=== PATIENT | female | born 1985 | race Caucasian/White ===

== ENCOUNTER 2024-04-08 15:42 | Outpatient (CLI) | payer OTHER, SELFPAY ==
[2024-04-08] VITALS (14 sets, daily range): BP systolic 131–167; BP diastolic 59–87; PULSE 77–98; BMI 35.8
[2024-04-08 16:26] LABS: Basophils Absolute Auto 0.1 K/mm3 (0.0-0.1); Basophils Percent Auto 0.4 % (0.2-1.2); Eosinophils Absolute Auto 0.1 K/mm3 (0-0.3); Eosinophils Percent Auto 0.6 % (0-4.4); Hematocrit 39.5 % (37.0-47.0); Hemoglobin 13.8 g/dL (12.0-15.0); Immature Granulocyte Absolute 0.09 K/mm3 (0.00-0.031); Immature Granulocyte Percent A 0.7 % (0-0.5); Lymphocytes Absolute Auto 2.29 K/mm3 (0.9-3.2); Lymphocytes Percent Auto 18.2 % (18.3-44.2); Mean Corpuscular HGB Conc 34.9 g/dl (32-36); Mean Corpuscular Hemoglobin 31.3 pg (26-34); Mean Corpuscular Volume 89.6 fl (80-100); Mean Platelet Volume 9.6 fl (7.4-10.4); Monocytes Absolute Auto 1.4 K/mm3 (0.1-0.6); Monocytes Percent Auto 11.4 % (2.6-8.5); Neutrophils Absolute Auto 8.7 K/mm3 (1.3-6.7); Neutrophils Percent Auto 68.7 % (45.5-73.1); Platelet Count Result 205 k/mm3 (150-375); Red Blood Count 4.41 M/mm3 (4.2-5.4); Red Cell Distribution Width 13.2 % (11.5-14.5); White Blood Count 12.6 K/mm3 (4.5-10.0)
[2024-04-08 16:35] LABS: Add Urine Microscopic? YES; Appearance Urine Clear (Clear); Bacteria Urine None Seen /hpf; Bilirubin Urine Negative (Negative); Blood Urine Trace (Negative); Color Urine Yellow (Yellow); Glucose Urine UA Negative (Negative); Ketones Urine Trace mg/dL (Negative); Leukocyte Esterase Ur Negative LEU/UL (Negative); Nitrate Urine Negative (Negative); Non Pathogenic Casts 0-2; Protein Urine Negative (Negative); Specific Grav Ur 1.014 (1.001-1.035); Squamous Epithelial Cell Urine Occasional /hpf (Few); WBC Urine 0-5 /hpf (0-3); pH Urine 6.5 (5.0-9.0)
[2024-04-08 16:41] LABS: Alanine Aminotransferase 46 U/L (6-35); Albumin Level 3.7 g/dL (3.5-5.1); Alkaline Phosphatase 74 U/L (38-126); Anion Gap 10 mmol/L (4-12); Aspartate Amino Transferase 26 U/L (14-36); Bilirubin,Total 0.2 mg/dL (0.2-1.3); Blood Urea Nitrogen 5 mg/dL (7-17); Calcium 8.9 mg/dL (8.4-10.2); Carbon Dioxide 21 mmol/L (22-30); Chloride 104 mmol/L (98-107); Estimated Glomerular Filt Rate > 60; Glucose 94 mg/dL (65-110); Potassium 3.6 mmol/L (3.4-5.0); Sodium 135 mmol/L (137-145); Uric Acid 3.8 mg/dL (2.5-7.5)
[2024-04-08 16:41] LABS: Creatinine Urine 112.5 mg/dL; Total Protein Urine Random 6 mg/dL; Ur Ttl Prot Creatinine Ratio 0.05 mg/mg (0-0.20)
--- NOTE | 2024-04-08 17:05 | PC.NURSE ---
Called Dr. Swann with pt status. Informed of BPs, and lab results. Orders received.
[2024-04-08] MEDS: LABETALOL HCL 100 MG TABLET 200 MG PO (17:23)
--- NOTE | 2024-04-08 18:20 | PC.NURSE ---
Dr. Swann updated on BPs. Continue to monitor BP for 1hr. If BP remains WNL, may D/C home with Labetalol 200mg. Follow up in office this week.
== END 2024-04-08 19:47 | disposition home or self-care (01) ==
LOC: ANHOBOP 15:51 → ANHOBPP 15:53
PROVIDERS: Visit Provider Obstetrics & Gynecology
DX: O13.9 Gestational [pregnancy-induced] hypertension without significant proteinuria, unspecified trimester (principal); Z3A.00 Weeks of gestation of pregnancy not specified
CPT/HCPCS: 36415; 80053; 81001; 82570; 84156; 84550; 85025; 99199; A9270

== ENCOUNTER 2024-07-02 11:42 | Outpatient (RCR) | payer OTHER, SELFPAY ==
[2024-07-02 13:07] LABS: Hematocrit 33.3 % (37.0-47.0); Hemoglobin 11.3 g/dL (12.0-15.0)
[2024-07-02 13:17] LABS: Glucose 1 Hour PP 50gm Dose 130 mg/dL
[2024-07-02 13:56] LABS: HIV 1/2 Ab P24 Ag Result Negative (Negative)
[2024-07-03 04:36] LABS: Rapid Plasma Reagin Non-Reactive (NonReactive)
[2024-07-04] MEDS: RHO(D) IMMUNE GLOBULIN 300 MCG/2 ML SYRINGE IM (17:21)
== END 2024-09-30 23:59 | disposition home or self-care (01) ==
LOC: ANHLAB 11:42
PROVIDERS: Visit Provider Obstetrics & Gynecology
DX: Z11.4 Encounter for screening for human immunodeficiency virus [HIV] (principal); Z11.3 Encounter for screening for infections with a predominantly sexual mode of transmission; O36.0130 Maternal care for anti-D [Rh] antibodies, third trimester, not applicable or unspecified; Z3A.00 Weeks of gestation of pregnancy not specified
CPT/HCPCS: 36415; 82947; 85014; 85018; 85461; 86592; 86703; 86850; 86900; 86901; 90384; 96372; G0432; J2790

== ENCOUNTER 2024-09-06 17:02 | Outpatient (CLI) | payer OTHER, SELFPAY ==
[2024-09-06 17:39] LABS: Hematocrit 33.6 % (37.0-47.0); Hemoglobin 10.9 g/dL (12.0-15.0); Mean Corpuscular HGB Conc 32.4 g/dl (32-36); Mean Corpuscular Hemoglobin 29.6 pg (26-34); Mean Corpuscular Volume 91.3 fl (80-100); Mean Platelet Volume 10.6 fl (7.4-10.4); Platelet Count Result 192 k/mm3 (150-375); Red Blood Count 3.68 M/mm3 (4.2-5.4); Red Cell Distribution Width 15.7 % (11.5-14.5); White Blood Count 10.6 K/mm3 (4.5-10.0)
[2024-09-06 18:31] LABS: HIV 1/2 Ab P24 Ag Result Negative (Negative)
[2024-09-06 22:33] LABS: Rapid Plasma Reagin Non-Reactive (NonReactive)
--- OUTSIDE RECORDS SUMMARY | 2024-09-08 20:09 | XMS_ITS | Data Portability ---
Author Organization [facility] [place] Address [address] [place] [address] [place] [address] Assessment Encounter Date Assessment Date Assessment LastModified by Organization Details LastModified Time 09/01/2024 09/01/2024 Patient is ___weeks . Discussed plan. Not available 09/01/2024 16:06:51 Plan of Treatment Reminders Order Date Submit Date Provider Last Modified By Organization Details Last Modified Time Details Appointments SURG POST OP 2024 02:15P Butch SWANN MD Not available Not available Not available Lab None recorded. Referral None recorded. Procedures None recorded. Surgeries None recorded. Imaging US, obstetric , biophysic al profile + non-stres s test 2024 025 [address], [address], [place], [address], 08/25/2024 21:13:44 non-stres s test 2024 025 [email or web address] [place], [address], [place], [address], 09/02/2024 09:09:04 US, obstetric , biophysic al profile + non-stres s test 2024 025 [email or web address] [place] [facility] [address], [place], [address], 09/01/2024 20:17:34 Medication Orders None recorded. Patient TargetsNo targets recorded. Patient InstructionsNo instructions recorded. Reason for Referral None Reported. Results Created Date Observation Date Name Description Value Unit Range Abnormal Flag Note LastModifiedBy Organization Detail LastModifiedTime 08/25/1908/25/2024 CULTU RE: GROUP B STREP SCREE N, REFLE X SUSCE PTIBI LITY result report SEE RESULT S BELOW Test: Cultu re: Group B Strep , Refle x Susce ptibi lity ([facility]/ [facility] ) Speci men Sourc e: Vagin a/Rec elizabeth Speci men Type: Vagin al/Re ctal Speci men Date: 025 1626 Resul t Date: 2024 1403 Resul t Statu s: Final resul t Abnor mal: No Resul ting Lab: [facility] [address] [facility] [address] Tel: CULTU RE ----- ----- ----- --- No Group B strep isola israel at 2 days (servando ctive broth enhan cemen t) Not Available [facility] (Lab) [address] [facility], [place], [address], 08/28/2024 15:06:43 07/27/20 24 07/27/2024 non-s tress test No observ ation record ed. [email or web address], [place], [address], 07/27/2024 17:48:00 07/27/20 24 07/27/2024 US, obste tric, bioph ysica l profi le + non-s tress test No observ ation record ed. [facility] [address], [place], [address], 07/27/2024 18:00:12 07/27/20 24 07/27/2024 US, obste tric, bioph ysica l profi le + non-s tress test No observ ation record ed. [email or web address] [address], [place], [address], 07/27/2024 21:54:43 08/03/20 24 08/03/2024 US, obste tric, bioph ysica l profi le + non-s tress test No observ ation record ed. [email or web address] [place] [address], [place], [address], 08/03/2024 17:58:44 08/03/20 24 08/03/2024 US, obste tric, bioph ysica l profi le + non-s tress test No observ ation record ed. [email or web address] [address] [facility], [place], [address], 08/03/2024 21:47:37 08/03/20 24 08/03/2024 non-s tress test No observ ation record ed. [email or web address] [place] [address], [place], [address], 08/03/2024 18:53:24 08/03/20 24 08/03/2024 non-s tress test No observ ation record ed. [email or web address] [place] [address], [place], [address], 08/03/2024 18:56:12 08/11/20 24 08/11/2024 non-s tress test No observ ation record ed. [email or web address] [place] [address], [place], [address], 08/11/2024 14:39:28 08/11/20 24 08/11/2024 US, obste tric, follo w-up No observ ation record ed. [email or web address] [place] [address], [place], [address], 08/11/2024 15:23:29 08/11/20 24 08/11/2024 US, obste tric, bioph ysica l profi le + non-s tress test No observ ation record ed. [email or web address] [place] [address], [place], [address], 08/11/2024 15:23:42 08/11/20 24 08/11/2024 US, obste tric, follo w-up No observ ation record ed. [email or web address] [address], [place], [address], 08/11/2024 20:37:13 08/18/19 25 08/18/2024 US, obste tric, bioph ysica l profi le + non-s tress test No observ ation record ed. [email or web address] [place] [address], [place], [address], 08/18/2024 18:23:18 08/18/19 25 08/18/2024 US, obste tric, bioph ysica l profi le + non-s tress test No observ ation record ed. [email or web address] [address], [place], [address], 08/18/2024 21:21:32 08/18/19 25 08/18/2024 non-s tress test No observ ation record ed. [place] [address], [place], [address], 08/18/2024 17:49:04 08/25/19 25 08/25/2024 US, obste tric, bioph ysica l profi le + non-s tress test No observ ation record ed. [email or web address] [place] [address], [place], [address], 08/25/2024 18:47:43 08/25/19 25 08/25/2024 US, obste tric, bioph ysica l profi le + non-s tress test No observ ation record ed. [email or web address] [address], [place], [address], 08/25/2024 21:21:25 08/25/19 25 08/25/2024 non-s tress test No observ ation record ed. [place] [address], [place], [address], 08/25/2024 18:47:13 09/01/19 25 09/01/2024 US, obste tric, bioph ysica l profi le + non-s tress test No observ ation record ed. [email or web address] [place] [address], [place], [address], 09/01/2024 18:32:00 09/01/19 25 09/01/2024 US, obste tric, follo w-up No observ ation record ed. [address], [place], [address], 09/01/2024 22:10:28 09/01/19 25 09/01/2024 non-s tress test No observ ation record ed. [place] [address], [place], [address], 09/01/2024 17:00:44 Result Notes None recorded. Problems Name Problem SNOMED Code Status Onset Date Resolution Date Notes Provider Name and Address Organization Details Recorded Time 06431115 Active 2023 Tracie resendiz, [facility] 4 15:35:01 Shoulder girdle dystocia 58838065 Active 9 lb 2 oz infant, possible injury, to do primary Gabino Swann MD [address], [place], [address], [facility] 4 18:21:13 RhD negative 484019460 Active rhogam @28wks - 07/04/24 received [facility], [facility] 4 11:16:57 RhD negative 831350874 Active rhogam @28wks - 07/04/24 received Chay resendiz, [facility] 4 11:16:57 Chronic hypertens ion in obstetric context 3863364 Active 32wk testing - baseline PIH labs & PCR done at [facility] 04/08/24. ALT mildly elevated (46), otherwise WNL. Labetalol 100 bid antental testing wkly 32wks 38wk delivery [facility], [facility] 4 15:48:13 Advanced maternal age 032119711 Active 36 WK TESTING Sylviabry Mac [facility] 4 10:11:15 Advanced maternal age 906373057 Active 36 WK TESTING Sylviabry Mac [facility] 4 10:11:15 Problem Notes None recorded. Procedures Surgical History Date Name Laterality Status Provider Name and Address Organization Details Recorded Time 5 SECTION (SURG) completed Tracie Brizuela [facility] 09/07/2024 10:23:05 2 Date of Last Pap Smear completed [facility] 02/22/2024 15:47:00 9 Breast Implants completed [facility] 02/22/2024 15:54:27 0 LEEP completed [facility] 02/22/2024 15:46:30 7 termination of completed [facility] 02/22/2024 15:54:42 Imaging Results Imaging Date Name Status LastModified by [facility]iz [email or web address] Details LastModified Time 07/27/2024 non-stress test completed [email or web address] [place] [address], [place], [address], 07/27/2024 17:48:00 07/27/2024 US, obstetric, biophysical profile + non-stress test completed [email or web address] [place] [address], [place], [address], 07/27/2024 18:00:12 07/27/2024 US, obstetric, biophysical profile + non-stress test completed [email or web address] [address], [place], [address], 07/27/2024 21:54:43 08/03/2024 US, obstetric, biophysical profile + non-stress test completed [email or web address] [place] [address], [place], [address], 08/03/2024 17:58:44 08/03/2024 US, obstetric, biophysical profile + non-stress test completed [email or web address] [address], [place], [address], 08/03/2024 21:47:37 08/03/2024 non-stress test completed [address], [place], [address], 08/03/2024 18:53:24 08/03/2024 non-stress test completed [email or web address], [place], [address], 08/03/2024 18:56:12 08/11/2024 non-stress test completed [email or web address] [address], [place], [address], 08/11/2024 14:39:28 08/11/2024 US, obstetric, follow-up completed [email or web address], [place], [address], 08/11/2024 15:23:29 08/11/2024 US, obstetric, biophysical profile + non-stress test completed [address], [place], [address], 08/11/2024 15:23:42 08/11/2024 US, obstetric, follow-up completed [email or web address] [address], [place], [address], 08/11/2024 20:37:13 08/18/2024 US, obstetric, biophysical profile + non-stress test completed [address], [place], [address], 08/18/2024 18:23:18 08/18/2024 US, obstetric, biophysical profile + non-stress test completed [email or web address] [address], [place], [address], 08/18/2024 21:21:32 08/18/2024 non-stress test active [address], [place], [address], 08/18/2024 17:49:04 08/25/2024 US, obstetric, biophysical profile + [facility]stress test [email or web address] [address], [place], [address], 08/25/2024 18:47:43 08/25/2024 US, obstetric, biophysical profile + non-stress test completed [email or web address] [address], [place], [address], 08/25/2024 21:21:25 08/25/2024 non-stress test active [email or web address] [place] [address] [address], [place], [address], 08/25/2024 18:47:13 09/01/2024 US, obstetric, biophysical profile + non-stress test completed [facility] [address], [place], [address], 09/01/2024 18:32:00 09/01/2024 US, obstetric, follow-up completed [address], [place], [address], 09/01/2024 22:10:28 09/01/2024 non-stress test completed [address], [place], [address], 09/01/2024 17:00:44 Procedure Notes None recorded. Medical Equipment None Reported. Allergies No known drug allergies Medications Name Sig Start Date Stop Date Status Note LastModified by Organization Details LastModified Time labetalol 200 mg tablet Take 1 tablet twice a day by oral route as directed . active Not Available Not Available No t Available active Not Available Not Avai lable Not Available Vitals Date Recorded Body weight Body height Body mass index (BMI) Body weight Systolic blood pressure Diastolic blood pressure Systolic blood pressure Diastolic blood pressure Provider Name and Address Organization Details Last Updated DateTime 640612. 55421 g 154.94 cm 42.7 kg/m2 262365. 88 g 158 mm[Hg] 90 mm[Hg] 158 mm[Hg] 90 mm[Hg] Norah Chahal [facility] 18:46:11 Date Recorded Body weight Systolic blood pressure Diastolic blood pressure Provider Name and Address Organization Details Last Updated DateTime 09/01/2024 618828.429 84 g 143 mm[Hg] 85 mm[Hg] Norah Chahal [facility] 09/01/2024 16:07:51 Date Recorded Body height Provider Name an d Address Organization Details Last Updated DateTime 09/01/2024 154.94 cm Tracie Brizuela [facility] 09/01/2024 16:59:26 Social History Question Answer Notes LastModified by Organizat ion Details LastModified Time Tobacco Smoking Status Current Every Day Smoker [facility]ah [facility], [facility] 02/22/2024 15:53:16 Do You Have An Advance Directive? No Information not available 02/22/2024 What Is Your Level Of Alcohol Consumption? None Information not available 02/22/2024 Are You Blind Or Do You Have Difficulty Seeing? No Information not available 02/22/2024 What Is Your Level Of Caffeine Consumption? Moderate Information not available 02/22/2024 In The 14 Days Before Symptom Onset, Have You Had Close Contact With A Laboratory-confir med COVID-19 While That Case Was Ill? No Information not available 02/22/2024 In The 14 Days Before Symptom Onset, Have You Had Close Contact With A Person Who Is Under Investigation For COVID-19 While That Person Was Ill? No Information not available 02/22/2024 Have You Been To An Area Known To Be High Risk For COVID-19? No Information not available 02/22/2024 Are You Deaf Or Do You Have Serious Difficulty Hearing? No Information not available 02/22/2024 What Type Of Diet Are You Following? REGULAR Information not available 02/22/2024 What Is The Highest Grade Or Level Of School You Have Completed Or The Highest Degree You Have Received? 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 No Information not available 02/22/2024 Do You Use Protection During Sex? No Information not available 02/22/2024 Do You Use Your Seat Belt Or Car Seat Routinely? Yes Information not available 02/22/2024 Are You Sexually Active? Yes Information not available 02/22/2024 Do You Have Smoke And Carbon Monoxide Detectors In Your Home? Yes Information not available 02/22/2024 Do You Feel Stressed (tense, Restless, Nervous, Or Anxious, Or Unable To Sleep At Night)? [id number] Information not available 02/22/2024 Do You Use Any Illicit Or Recreational Drugs? No Information not available 02/22/2024 Do You Use Sunscreen Routinely? Yes Information not available 02/22/2024 Have You Used IV Drugs? No Information not available 02/22/2024 Sex: Unknown Functional Status Question Answer Note LastModified by Organizat ion Details LastModified Time Do you have difficulty walking or climbing stairs? No Information not available 02/22/2024 Are you able to walk? YESWOREST Information not available 02/22/2024 Are you able to care for yourself? Yes Information not available 02/22/2024 Do you have difficulty dressing or bathing? No Information not available 02/22/2024 What is your exercise level? Occasional Information not available 02/22/2024 Mental Status None recorded. Family History Relationship Description Onset Age of this Age Resolved Age Notes LastModified by Organization Details LastModified Time Father Hypertensive disorder Not available 2023 15:52:40 Paternal Grandmother Hypertensive disorder Not available 2023 15:52:40 Paternal Aunt Carcinoma of cervix Not available 2023 15:53:07 Medical History No medical history recorded. Gynecological History Statement/Question Response Abnormal Pap Y Flow Moderate Date of LMP 12/16/2023 On BCP's at Conception? N Was last menstrual period normal Y STIs/STDs N HPV Vaccine Y Duration of Flow (days) 7 Current Control Method Age at First Child 19 Are cycles usually normal Y Frequency of Cycle (Q days) 30 Sexually Active? Y Menses Monthly Y Age of first menstrual cycle 18 Date of Last Pap Smear 08/17/2021 Sexual Problems? N LMP Definite Obstetrics History GPAL:G 5 P 1 0 2 1 Type Value Full Term 1 Induced 1 Spontaneous 1 Living 1 Total 5 Past Encounters Encounter ID Performer Location Encounter Start Date Encounter Closed Date Diagnosis/Indication Diagnosis SNOMED-CT Code Diagnosis ICD10 Code Diagnosis Note [id number] Brittany Miller [place] [address] [address] 02/22/2024 14:53:10 02/22/2024 15:25:48 [id number] Gabino Swann MD [place] [address],[place] [address] 02/22/2024 14:53:24 02/22/2024 16:45:45 Amenorrhea 88804384 N91.2 this patient is a 38-year-ol d female who presents for amenorrhea . She is a positive test. Ultrasound revealed a 1st trimester gestation. Patient has no complaints . We talked about early care. Talked about genetic screening. We talked about her ultrasound results. We talked about the 12 week ultrasound that has genetic screening components . She was given recommenda tions on exercise, diet, over-the-c ounter medication s. We reviewed her obstetric history. We reviewed her medical history. We reviewed her social history. She will begin routine care at her next visit. shoulder dystocia with injury to the shoulder. , hypoxia , to do , history 9 lb 2 oz baby [id number] Gabino Swann MD [place] [address],[place] [address] 03/11/2024 14:55:10 03/12/2024 10:00:08 Routine care 236980175 Z34.90 screening 2437 76925 Z36.82 Z3A.12 [id number] [facility] [address],[place] [address] 03/11/2024 14:55:53 03/11/2024 16:36:37 screening 200538561 Z36.82 Z3A.12 [id number] Gabino Swann MD [place] [address],[place] [address] 04/08/2024 15:49:05 04/08/2024 16:50:28 Chronic hypertension in obstetric context 3973162 O16.9 [id number] Gabino Swann MD [place] [address],[place] [address] 04/15/2024 15:12:16 04/15/2024 16:13:47 Routine care 018044061 Z34.90 [id number] [facility] [address],[place] [address] 05/05/2024 16:33:53 05/05/2024 17:52:27 screening for malformation 802748403 Z36.3 Z3A.20 [id number] Gabino Swann MD [place] [address],[place] [address] 05/05/2024 16:35:09 05/06/2024 09:59:52 Routine care 097092426 Z34.90 [id number] [facility] [address],[place] [address] 06/06/2024 16:53:05 06/06/2024 17:35:37 screening 078197267 Z36.2 Z3A.24 [id number] Gabino Swann MD [place] [address],[place] [address] 06/06/2024 16:53:36 06/06/2024 17:57:30 Routine care 521887694 Z34.90 [id number] Gabino Swann MD [place] [address],[place] [address] 07/04/2024 17:08:50 07/05/2024 02:44:56 Chronic hypertension complicating AND/OR reason for care during 16896660 O16.9 Routine an tenatal care 112661167 Z34.90 [id number] [facility] [address],[place] [address] 07/18/2024 16:54:55 07/18/2024 22:53:25 Chronic hypertension complicating AND/OR reason for care during 76112873 O10.013 O09.523 Z3A.30 [id number] Gabino Swann MD [place] [address],[place] [address] 07/18/2024 16:55:14 07/18/2024 22:54:38 Routine care 127001769 Z34.[id number] [facility] [address],[place] [address] 07/27/2024 17:01:24 07/27/2024 17:38:19 69753174 Z33.1 Chronic hy pertension complicating AND/OR reason for care during 72039220 O10.013 O09.523 Z3A.32 [id number] Kristina Lucy [place] [address],[place] [address] 07/27/2024 17:01:48 07/27/2024 17:59:26 Chronic hypertension complicating AND/OR reason for care during 37166508 O10.013 O09.523 Z3A.32 [id number] Gabino Swann MD [place] [address],[place] [address] 07/27/2024 17:02:18 07/28/2024 09:50:02 Routine care 071780577 Z34.90 [id number] Domenica Malik [place] [address],[place] [address] 08/03/2024 16:59:55 08/04/2024 10:57:32 Chronic hypertension complicating AND/OR reason for care during 90255487 O16.9 [id number] Brittany Miller [place] [address],[place] [address] 08/03/2024 17:00:15 08/04/2024 06:35:25 Chronic hypertension in obstetric context 0483758 O10.013 O09.523 Z3A.33 [id number] Gabino Swann MD [place] [address],[place] [address] 08/03/2024 17:00:35 08/04/2024 06:38:20 Routine care 837054737 Z34.90 [id number] Tracie Brizuela [place] [address],[place] [address] 08/11/2024 14:04:45 08/11/2024 15:08:56 Chronic hypertension complicating AND/OR reason for care during 06022231 O16.9 [id number] [facility] [address],[place] [address] 08/11/2024 14:05:09 08/11/2024 15:17:40 Chronic hypertension complicating AND/OR reason for care during 53528765 O10.013 O09.523 Z3A.34 [id number] Gabino Swann MD [place] [address],[place] [address] 08/11/2024 14:05:21 08/11/2024 15:56:28 Obstructed labor due to shoulder dystocia 140133360 O66.0 [id number] Kristina [facility] [address],[place] [address] 08/18/2024 13:35:08 08/18/2024 14:11:40 Advanced maternal age 017339545 O09.523 O16.3 O99.210 Z3A.35 [id number] Norah [facility] [address],[place] [address] 08/18/2024 13:35:24 08/18/2024 22:45:22 Chronic hypertension complicating AND/OR reason for care during 26249110 O16.9 [id number] Gabino Swann MD [place] [address],[place] [address] 08/18/2024 13:35:36 08/18/2024 15:32:19 Routine care 217401692 Z34.90 Obstructed labor due to shoulder dystocia 810899754 O66.0 [id number] [facility] [address],[place] [address] 08/25/2024 14:21:16 08/25/2024 15:14:06 Chronic hypertension complicating AND/OR reason for care during 54917295 O10.013 O09.523 Z3A.36 [id number] Norah [facility] [address],[place] [address] 08/25/2024 14:21:31 08/26/2024 14:25:21 Chronic hypertension complicating AND/OR reason for care during 39063758 O16.9 [id number] Gabino Swann MD [place] [address],[place] [address] 08/25/2024 14:22:03 08/25/2024 16:36:59 Routine care 809261466 Z34.90 [id number] Brittany Miller [place] [address],[place] [address] 09/01/2024 14:40:13 09/01/2024 15:12:45 Chronic hypertension complicating AND/OR reason for care during 36201504 O10.013 O09.523 Z3A.37 [id number] Tracie Gelacio [place] [address],[place] [address] 09/01/2024 14:40:30 09/01/2024 17:14:57 Chronic hypertension complicating AND/OR reason for care during 45476613 O10.013 O09.523 Z3A.37 [id number] Gabino Swann MD [place] [address],[place] [address] 09/01/2024 14:40:53 09/01/2024 17:05:52 Routine care 553910744 Z34.90 [id number] Gabino Swann MD [place] [address],[place] [address] 09/07/2024 10:27:45 09/07/2024 16:15:05 Health Concerns Section Related Observation LastModified by Organization Detai ls LastModified Time None Recorded Concern Status LastModified by Organization Details LastModified Time None Recorded Advance Directives Directive N: Payers Encounter Date Sequence Insurance Name Policy Number Policy Painting Covered Member ID Painting Member ID Guarantor Name 08/25/2024 1 [employer] [id number] Jessika Neri [id number] Jessika Neri 09/01/2024 1 [employer] [id number] Jessika Neri [id number] Jessika Neri 09/01/2024 1 [employer] [id number] Jessika Neri [id number] Jessika Neri 09/01/2024 1 [employer] [id number] Jessika Daron [id number] Jessika Daron 09/07/2024 1 [employer] [id number] Jessika Daron [id number] Jessika Neri OBGyn Episode Ob Episode Information Episode Created Date Number of Fetuses Patient Bloodtype Patient rh Status Prepregnancy Weight lbs Domestic Partner Domestic Partner Phone Father Name Bobbin Loose End Finder Status 02/22/20 1 CLOSED Fetus Data First Name Last Name Admitted to NICU Weight (g) Sex Living Outcome Pediatric Complications Fetus ID Race Codes Race Delivery Type , Induced [id number] Rico Calculation Initial Rico Date Initial Exam Date Initial Exam Provider Initial Ultrasound Date Last Menstrual Period Date Ultra Sound Weeks Gestation 0 Eighteen To Twenty Week Rico Update Ultra Sound Date Fundal Height At Umbil Quickening Date Ultra Sound Latest Weeks Gestation Final Rico Confirmed By Final Rico Confirmed Date Final Rico Date Ultra Sound Latest Days Gestation 0 0 Menstrual History Last Menstrual Date Menses Monthly On Bcp Conception Prior Menses Frequency Hcg Plus Date Menarche Onset Age Delivery Information Delivery Date Delivery Type Labor Anesthesia Weeks Gestation Incision Type Labor Labor Length Hrs Delivered By Post Complications Tubal Sterilization Discharge Date Comments 7 Discharge Information Feeding Method Contraceptive Method Maternal HG B and HCT Levels Ob Episode Information Episode Created Date Number of Fetuses Patient Bloodtype Patient rh Status Prepregnancy Weight lbs Domestic Partner Domestic Partner Phone Father Name Bobbin Loose End Finder Status 03/11/20 [address] OPEN Fetus Data First Name Last Name Admitted to NICU Weight (g) Sex Living Outcome Pediatric Complications Fetus ID Race Codes Race Delivery Type [id number] Problems Problem Notes Problem Name Start Date End Date Resolution Snomed Code Not e Advanced maternal age [id number] WK TESTING Chronic hypertension in obstetric context [id number] 32wk anten atal testing - baseline PIH labs & PCR done at [facility] 04/08/24. ALT mildly elevated (46), otherwise WNL. Labetalol 100 bid antental testing wkly 32wks 38wk delivery RhD negative [id number] rhogam @28wks - 07/04/24 received Shoulder girdle dystocia [id number] lb 2 oz infan t, possible injury, to do primary Rico Calculation Initial Rico Date Initial Exam Date Initial Exam Provider Initial Ultrasound Date Last Menstrual Period Date Ultra Sound Weeks Gestation 09/21/2024 03/11/2024 02/22/2024 12/16/2023 9 Eighteen To Twenty Week Rico Update Ultra Sound Date Fundal Height At Umbil Quickening Date Ultra Sound Latest Weeks Gestation Final Rico Confirmed By Final Rico Confirmed Date Final Rico Date Ultra Sound Latest Days Gestation 0 [email or web address] 07/04/2024 09/21/19 25 0 Pre- Flowsheet Flowsheet Date 03/11/2024 Lozano Score Blood Edema Fundus Height Fundus Units Glucose Ketones Leukocytes Nitrite Labor Signs Protein Cervic Dilation Cervic Effacement Cervic Station neg none none trace Type Weight in lbs Pre/Post Dialysis Refused Weight 180.176295118652 BP Diastolic BP Location Tested BP Systolic BP Type 92 L arm 153 sitting Fetus Heart Rate Present Fetus Movement Comments this patient is a 14 -year-o ld multiparous female at 12 weeks' gestation who presents for initial care. She has a history of term vaginal births. Her medical, surgical, obstetric history is unremarkable. She is vaccinated. She was given precautions recommendations for . We talked about vaccines in . Talked about care in detail. She is having genetic testing. She had a normal 12 week ultrasound. To begin routine care. shoulder dystocia with possible injury Flowsheet Date 03/11/2024 Lozano Score Blood Edema Fundus Height Fundus Units Glucose Ketones Leukocytes Nitrite Labor Signs Protein Cervic Dilation Cervic Effacement Cervic Station Type Weight in lbs Pre/Post Dialysis Refused BP Diastolic BP Location Tested BP Systolic BP Type Fetus Heart Rate Present Fetus Movement Comments Flowsheet Date 04/08/2024 Lozano Score Blood Edema Fundus Height Fundus Units Glucose Ketones Leukocytes Nitrite Labor Signs Protein Cervic Dilation Cervic Effacement Cervic Station 16 cm Type Weight in lbs Pre/Post Dialysis Refused 189.080033519779 BP Diastolic BP Location Tested BP Systolic BP Type 127 L arm 186 sitting 120 R arm 188 sitting 118 R arm 180 sitting Fetus Heart Rate Present A 150 Fetus Movement A No Comments patient has very high blood pressures. She has asked to go to labor and delivery for control of her blood pressure issue. She understands that there is risk of stroke, heart attack, loss of , spoke to labor and delivery, they are expecting her. Flowsheet Date 04/15/2024 Lozano Score Blood Edema Fundus Height Fundus Units Glucose Ketones Leukocytes Nitrite Labor Signs Protein Cervic Dilation Cervic Effacement Cervic Station Type Weight in lbs Pre/Post Dialysis Refused 189.322913405325 BP Diastolic BP Location Tested BP Systolic BP Type 78 L arm 129 sitting Fetus Heart Rate Present A 151 Fetus Movement A Yes Comments no complaints, no problems, routine care, no contractions, no vaginal bleeding, no loss of fluid, no cramping now under control on labetalol. Continue routine care. Flowsheet Date 05/05/2024 Lozano Score Blood Edema Fundus Height Fundus Units Glucose Ketones Leukocytes Nitrite Labor Signs Protein Cervic Dilation Cervic Effacement Cervic Station Type Weight in lbs Pre/Post Dialysis Refused BP Diastolic BP Location Tested BP Systolic BP Type Fetus Heart Rate Present Fetus Movement Comments Flowsheet Date 05/05/2024 Lozano Score Blood Edema Fundus Height Fundus Units Glucose Ketones Leukocytes Nitrite Labor Signs Protein Cervic Dilation Cervic Effacement Cervic Station Type Weight in lbs Pre/Post Dialysis Refused 198.810292744949 BP Diastolic BP Location Tested BP Systolic BP Type 86 L arm 151 sitting 80 R arm 148 sitting Fetus Heart Rate Present Fetus Movement A Yes Comments Patient declined preeclampsi a labs today. To drawn in 2 weeks. Patient asked to return in 2 weeks. No headaches, blurred vision, epigastric pain. On labetalol - 200 b.i.d.. Improved blood pressures. Incomplete anatomy u/s Flowsheet Date 06/06/2024 Lozano Score Blood Edema Fundus Height Fundus Units Glucose Ketones Leukocytes Nitrite Labor Signs Protein Cervic Dilation Cervic Effacement Cervic Station Type Weight in lbs Pre/Post Dialysis Refused BP Diastolic BP Location Tested BP Systolic BP Type Fetus Heart Rate Present Fetus Movement Comments Flowsheet Date 06/06/2024 Lozano Score Blood Edema Fundus Height Fundus Units Glucose Ketones Leukocytes Nitrite Labor Signs Protein Cervic Dilation Cervic Effacement Cervic Station Type Weight in lbs Pre/Post Dialysis Refused 202.980734951742 BP Diastolic BP Location Tested BP Systolic BP Type 92 R arm 148 sitting Fetus Heart Rate Present A 144 Fetus Movement A Yes Comments no complaints, no problems, routine care, no contractions, no vaginal bleeding, no loss of fluid, no cramping Flowsheet Date 07/04/2024 Lozano Score Blood Edema Fundus Height Fundus Units Glucose Ketones Leukocytes Nitrite Labor Signs Protein Cervic Dilation Cervic Effacement Cervic Station Type Weight in lbs Pre/Post Dialysis Refused 214.393056217684 BP Diastolic BP Location Tested BP Systolic BP Type 82 L arm 150 sitting 88 L arm 142 sitting Fetus Heart Rate Present A 144 Fetus Movement A Yes Comments no complaints, no problems, routine care, no contractions, no vaginal bleeding, no loss of fluid, no cramping Flowsheet Date 07/18/2024 Lozano Score Blood Edema Fundus Height Fundus Units Glucose Ketones Leukocytes Nitrite Labor Signs Protein Cervic Dilation Cervic Effacement Cervic Station Type Weight in lbs Pre/Post Dialysis Refused BP Diastolic BP Location Tested BP Systolic BP Type Fetus Heart Rate Present Fetus Movement Comments Flowsheet Date 07/18/2024 Lozano Score Blood Edema Fundus Height Fundus Units Glucose Ketones Leukocytes Nitrite Labor Signs Protein Cervic Dilation Cervic Effacement Cervic Station Type Weight in lbs Pre/Post Dialysis Refused 221.117493906735 BP Diastolic BP Location Tested BP Systolic BP Type 84 L arm 132 sitting Fetus Heart Rate Present A 140 Fetus Movement A Yes Comments no complaints, no problems, routine care, no contractions, no vaginal bleeding, no loss of fluid, no cramping Flowsheet Date 07/27/2024 Lozano Score Blood Edema Fundus Height Fundus Units Glucose Ketones Leukocytes Nitrite Labor Signs Protein Cervic Dilation Cervic Effacement Cervic Station Type Weight in lbs Pre/Post Dialysis Refused BP Diastolic BP Location Tested BP Systolic BP Type Fetus Heart Rate Present Fetus Movement Comments Flowsheet Date 07/27/2024 Lozano Score Blood Edema Fundus Height Fundus Units Glucose Ketones Leukocytes Nitrite Labor Signs Protein Cervic Dilation Cervic Effacement Cervic Station Type Weight in lbs Pre/Post Dialysis Refused BP Diastolic BP Location Tested BP Systolic BP Type Fetus Heart Rate Present Fetus Movement Comments Flowsheet Date 07/27/2024 Lozano Score Blood Edema Fundus Height Fundus Units Glucose Ketones Leukocytes Nitrite Labor Signs Protein Cervic Dilation Cervic Effacement Cervic Station 145 cm Type Weight in lbs Pre/Post Dialysis Refused With clothes 221.573319842716 BP Diastolic BP Location Tested BP Systolic BP Type 90 L arm 161 sitting 70 L arm 130 supine Fetus Heart Rate Present Fetus Movement Comments no complaints, no problems, routine care, no contractions, no vaginal bleeding, no loss of fluid, no cramping Reassuring testing Flowsheet Date 08/03/2024 Lozano Score Blood Edema Fundus Height Fundus Units Glucose Ketones Leukocytes Nitrite Labor Signs Protein Cervic Dilation Cervic Effacement Cervic Station Type Weight in lbs Pre/Post Dialysis Refused Weight 222.6569573653 BP Diastolic BP Location Tested BP Systolic BP Type 80 137 Fetus Heart Rate Present Fetus Movement Comments Flowsheet Date 08/03/2024 Lozano Score Blood Edema Fundus Height Fundus Units Glucose Ketones Leukocytes Nitrite Labor Signs Protein Cervic Dilation Cervic Effacement Cervic Station Type Weight in lbs Pre/Post Dialysis Refused BP Diastolic BP Location Tested BP Systolic BP Type Fetus Heart Rate Present Fetus Movement Comments Flowsheet Date 08/03/2024 Lozano Score Blood Edema Fundus Height Fundus Units Glucose Ketones Leukocytes Nitrite Labor Signs Protein Cervic Dilation Cervic Effacement Cervic Station Type Weight in lbs Pre/Post Dialysis Refused 222.93341191312 BP Diastolic BP Location Tested BP Systolic BP Type 80 L arm 137 sitting Fetus Heart Rate Present A 145 Fetus Movement A Yes Comments Patient is becoming very unc omfortable with upward pressure from the uterus. No contractions, no headaches, no blurry vision, no epigastric pain. Flowsheet Date 08/11/2024 Lozano Score Blood Edema Fundus Height Fundus Units Glucose Ketones Leukocytes Nitrite Labor Signs Protein Cervic Dilation Cervic Effacement Cervic Station Type Weight in lbs Pre/Post Dialysis Refused BP Diastolic BP Location Tested BP Systolic BP Type Fetus Heart Rate Present Fetus Movement Comments Flowsheet Date 08/11/2024 Lozano Score Blood Edema Fundus Height Fundus Units Glucose Ketones Leukocytes Nitrite Labor Signs Protein Cervic Dilation Cervic Effacement Cervic Station Type Weight in lbs Pre/Post Dialysis Refused BP Diastolic BP Location Tested BP Systolic BP Type Fetus Heart Rate Present Fetus Movement Comments Flowsheet Date 08/11/2024 Lozano Score Blood Edema Fundus Height Fundus Units Glucose Ketones Leukocytes Nitrite Labor Signs Protein Cervic Dilation Cervic Effacement Cervic Station Type Weight in lbs Pre/Post Dialysis Refused 226.006446409794 BP Diastolic BP Location Tested BP Systolic BP Type 79 L arm 144 sitting Fetus Heart Rate Present Fetus Movement A Yes Comments Flowsheet Date 08/18/2024 Lozano Score Blood Edema Fundus Height Fundus Units Glucose Ketones Leukocytes Nitrite Labor Signs Protein Cervic Dilation Cervic Effacement Cervic Station Type Weight in lbs Pre/Post Dialysis Refused BP Diastolic BP Location Tested BP Systolic BP Type Fetus Heart Rate Present Fetus Movement Comments Flowsheet Date 08/18/2024 Lozano Score Blood Edema Fundus Height Fundus Units Glucose Ketones Leukocytes Nitrite Labor Signs Protein Cervic Dilation Cervic Effacement Cervic Station Type Weight in lbs Pre/Post Dialysis Refused Weight 226.096633916852 BP Diastolic BP Location Tested BP Systolic BP Type 74 L arm 131 sitting Fetus Heart Rate Present Fetus Movement Comments Flowsheet Date 08/18/2024 Lozano Score Blood Edema Fundus Height Fundus Units Glucose Ketones Leukocytes Nitrite Labor Signs Protein Cervic Dilation Cervic Effacement Cervic Station Type Weight in lbs Pre/Post Dialysis Refused 226.978920187795 BP Diastolic BP Location Tested BP Systolic BP Type 74 L arm 131 sitting Fetus Heart Rate Present A 145 Fetus Movement Comments no complaints, no problems, routine care, no contractions, no vaginal bleeding, no loss of fluid, no cramping . worsening of her swelling. Denies any headaches, blurry vision, epigastric pain. Given precautions for preeclampsia. Flowsheet Date 08/25/2024 Lozano Score Blood Edema Fundus Height Fundus Units Glucose Ketones Leukocytes Nitrite Labor Signs Protein Cervic Dilation Cervic Effacement Cervic Station Type Weight in lbs Pre/Post Dialysis Refused BP Diastolic BP Location Tested BP Systolic BP Type Fetus Heart Rate Present Fetus Movement Comments Flowsheet Date 08/25/2024 Lozano Score Blood Edema Fundus Height Fundus Units Glucose Ketones Leukocytes Nitrite Labor Signs Protein Cervic Dilation Cervic Effacement Cervic Station Type Weight in lbs Pre/Post Dialysis Refused Weight 226.392620558629 BP Diastolic BP Location Tested BP Systolic BP Type 90 L arm 158 sitting Fetus Heart Rate Present Fetus Movement Comments Flowsheet Date 08/25/2024 Lozano Score Blood Edema Fundus Height Fundus Units Glucose Ketones Leukocytes Nitrite Labor Signs Protein Cervic Dilation Cervic Effacement Cervic Station Type Weight in lbs Pre/Post Dialysis Refused 226.639127647339 BP Diastolic BP Location Tested BP Systolic BP Type 90 L arm 158 sitting Fetus Heart Rate Present A 144 Fetus Movement Comments no complaints, no problems, routine care, no contractions, no vaginal bleeding, no loss of fluid, no cramping Flowsheet Date 09/01/2024 Lozano Score Blood Edema Fundus Height Fundus Units Glucose Ketones Leukocytes Nitrite Labor Signs Protein Cervic Dilation Cervic Effacement Cervic Station Type Weight in lbs Pre/Post Dialysis Refused BP Diastolic BP Location Tested BP Systolic BP Type Fetus Heart Rate Present Fetus Movement Comments Flowsheet Date 09/01/2024 Lozano Score Blood Edema Fundus Height Fundus Units Glucose Ketones Leukocytes Nitrite Labor Signs Protein Cervic Dilation Cervic Effacement Cervic Station Type Weight in lbs Pre/Post Dialysis Refused BP Diastolic BP Location Tested BP Systolic BP Type Fetus Heart Rate Present Fetus Movement Comments Flowsheet Date 09/01/2024 Lozano Score Blood Edema Fundus Height Fundus Units Glucose Ketones Leukocytes Nitrite Labor Signs Protein Cervic Dilation Cervic Effacement Cervic Station Type Weight in lbs Pre/Post Dialysis Refused 232.07560626380 BP Diastolic BP Location Tested BP Systolic BP Type 85 L arm 143 sitting Fetus Heart Rate Present A 126 Fetus Movement A Yes Comments no complaints, no problems, routine care, no contractions, no vaginal bleeding, no loss of fluid, no cramping Flowsheet Date 09/07/2024 Lozano Score Blood Edema Fundus Height Fundus Units Glucose Ketones Leukocytes Nitrite Labor Signs Protein Cervic Dilation Cervic Effacement Cervic Station Type Weight in lbs Pre/Post Dialysis Refused BP Diastolic BP Location Tested BP Systolic BP Type Fetus Heart Rate Present Fetus Movement Comments Menstrual History Last Menstrual Date Menses Monthly On Bcp Conception Prior Menses Frequency Hcg Plus Date Menarche Onset Age 0512/16/2023 Delivery Information Delivery Date Delivery Type Labor Anesthesia Weeks Gestation Incision Type Labor Labor Length Hrs Delivered By Post Complications Tubal Sterilization Discharge Date Comments Discharge Information Feeding Method Contraceptive Method Maternal HG B and HCT Levels Ob Episode Information Episode Created Date Number of Fetuses Patient Bloodtype Patient rh Status Prepregnancy Weight lbs Domestic Partner Domestic Partner Phone Father Name Bobbin Loose End Finder Status 02/22/20 24 1 CLOSED Fetus Data First Name Last Name Admitted to NICU Weight (g) Sex Living Outcome Pediatric Complications Fetus ID Race Codes Race Delivery Type 4139.02 7 M Full Term [id number] Vaginal Delivery Rico Calculation Initial Rico Date Initial Exam Date Initial Exam Provider Initial Ultrasound Date Last Menstrual Period Date Ultra Sound Weeks Gestation 0 Eighteen To Twenty Week Rico Update Ultra Sound Date Fundal Height At Umbil Quickening Date Ultra Sound Latest Weeks Gestation Final Rico Confirmed By Final Rico Confirmed Date Final Rico Date Ultra Sound Latest Days Gestation 0 0 Menstrual History Last Menstrual Date Menses Monthly On Bcp Conception Prior Menses Frequency Hcg Plus Date Menarche Onset Age Delivery Information Delivery Date Delivery Type Labor Anesthesia Weeks Gestation Incision Type Labor Labor Length Hrs Delivered By Post Complications Tubal Sterilization Discharge Date Comments 5 42 Discharge Information Feeding Method Contraceptive Method Maternal HG B and HCT Levels Ob Episode Information Episode Created Date Number of Fetuses Patient Bloodtype Patient rh Status Prepregnancy Weight lbs Domestic Partner Domestic Partner Phone Father Name Bobbin Loose End Finder Status 02/22/20 24 1 CLOSED Fetus Data First Name Last Name Admitted to NICU Weight (g) Sex Living Outcome Pediatric Complications Fetus ID Race Codes Race Delivery Type , [place] [id number] Rico Calculation Initial Rico Date Initial Exam Date Initial Exam Provider Initial Ultrasound Date Last Menstrual Period Date Ultra Sound Weeks Gestation 0 Eighteen To Twenty Week Rico Update Ultra Sound Date Fundal Height At Umbil Quickening Date Ultra Sound Latest Weeks Gestation Final Rico Confirmed By Final Rico Confirmed Date Final Rico Date Ultra Sound Latest Days Gestation 0 0 Menstrual History Last Menstrual Date Menses Monthly On Bcp Conception Prior Menses Frequency Hcg Plus Date Menarche Onset Age Delivery Information Delivery Date Delivery Type Labor Anesthesia Weeks Gestation Incision Type Labor Labor Length Hrs Delivered By Post Complications Tubal Sterilization Discharge Date Comments 4 Discharge Information Feeding Method Contraceptive Method Maternal HG B and HCT Levels
--- OUTSIDE RECORDS SUMMARY | 2024-09-08 20:09 | XMS_ITS | Clinical Summary ---
Author Organization [facility] Address [address] [place] [address] Care Team Providers Care Cereal Maker Name Role Phone Mariaelena Wooten Primary Care Provider [phone] [facility],non-owned Affiliates and Associated Physician Practices is amultiple site organization consisting of ambulatory clinics and hospital sitesin [place], [place], [place] and [place]. This disclosure is being madepursuant to the Care Everywhere program and may not contain all information available regarding this patient. Last updated 18.[facility] Allergies No known active allergies Medications * Be aware that medications may not be up to date on this document. Alwaysverify current medications with the patient. Medication Sig Dispensed Refills Start Date End Date Status Desogestrel-Ethinyl Estradiol (APRI PO) Active Active Problems No known active problems Family History Relation Name Status Comments Father Alive Mother Alive Social History Tobacco Use Types Packs/Day Years Used Date Smoking Tobacco: Some Days Smokeless Tobacco: Never Sex and Gender Information Value Date Recorded Sex Assigned at Not on file Gender Identity Not on file Sexual Orientation Not on file Last Filed Vital Signs Vital Sign Reading Time Taken Comments Blood Pressure 122/84 09/30/2018 6:56 PM CLOUD PHYSICIST Pulse 105 09/30/2018 6:56 PM CLOUD PHYSICIST Temperature 37.7 ??C (99.8 ??F) 09/30/2018 6:56 PM CS T Respiratory Rate 18 09/30/2018 6:56 PM CLOUD PHYSICIST Oxygen Saturation - - Inhaled Oxygen Concentration - - Weight 71.7 kg (158 lb) 09/30/2018 6:56 PM CLOUD PHYSICIST Height 154.9 cm (5' 1 ) 09/30/2018 6:56 PM CLOUD PHYSICIST Body Mass Index 29.85 09/30/2018 6:56 PM CLOUD PHYSICIST Plan of Treatment Health Maintenance Due Date Last Done Comments PAP SMEAR 1987 HIV SCREENING 2002 HEPATITIS C SCREENING 04/02/2005 DTAP/TDAP/TD VACCINES (1 - Tdap) 2006 HEPATITIS B VACCINE (1 of 3 - 19+ 3-dose series) 2006 PNEUMOCOCCAL VACCINE (1 of 2 - PCV) 2006 COVID-19 VACCINE (1 - 2023-2 5 season) 2024 INFLUENZA VACCINE (#1) 2024 DEPRESSION SCREENING 08/17/2024 ZOSTER VACCINE (1 of 2) 2037 HIB VACCINE Aged Out No longer eligi ble based on patient's age to complete this topic HPV VACCINE Aged Out No longer eligi ble based on patient's age to complete this topic MENINGOCOCCAL (Group B) VACCINE Aged Out No longer eligible based on patient's age to complete this topic MENINGOCOCCAL VACCINE Aged Out No mehul rachna eligible based on patient's age to complete this topic Care Teams Cereal Maker Relationship Specialty Start Date End Date Mariaelena Wooten PA [address] [place] [address] PCP - General 09/30/18
--- OUTSIDE RECORDS SUMMARY | 2024-09-08 20:09 | XMS_ITS | Clinical Summary ---
Author Organization [facility] Address [address] [place] [address] Phone Care Team Providers Care Student Worker Name Role Phone Mariaelena Wooten Primary Care Provider [phone] Allergies No known active allergies Medications No known medications Active Problems No known active problems Social History Tobacco Use Types Packs/Day Years Used Date Smoking Tobacco: Every Day Cigarettes Smokeless Tobacco: Never Tobacco Cessation:Ready to Q uit: Yes; Counseling Given: Yes Alcohol Use Standard Drinks/Week Comments No 0 (1 standard drink = 0.6 oz pur e alcohol) Sexually Active Control Partners Comments Yes Inserts Male Comments No Sex and Gender Information Value Date Recorded Sex Assigned at Not on file Legal Sex Female 7:08 PM CDT Gender Identity Not on file Sexual Orientation Not on file Last Filed Vital Signs Vital Sign Reading Time Taken Comments Blood Pressure 124/68 12/10/2017 2:46 PM CDT Pulse 102 12/10/2017 2:46 PM CDT Temperature 37.5 ??C (99.5 ??F) 12/10/2017 2:46 PM CD T Respiratory Rate 16 12/10/2017 2:46 PM CDT Oxygen Saturation 98% 12/10/2017 2:46 PM CDT Inhaled Oxygen Concentration - - Weight 77.1 kg (170 lb) 12/10/2017 2:46 PM CDT p er pt Height 157.5 cm (5' 2 ) 12/10/2017 2:46 PM CDT Body Mass Index 31.09 12/10/2017 2:46 PM CDT Plan of Treatment Health Maintenance Due Date Last Done Comments Hepatitis C Virus (HCV) Screening 1987 HPV/Cotest 2017 Cervical Cancer Screening (CCS) 09/15/2020 Pap Smear 09/15/2020 09/15/2017 Influenza Immunization (#1) 2024 SARS-COV-2 Immunization ( season) 2024 Respiratory Syncytial Virus (RSV) Immunization (Adult) (1 - 1-dose 75+ series) 2062 Hepatitis B Immunization Completed 998, 03/22/1997, 02/15/1997 DTaP/Tdap/Td Immunization Discontinued 2009, 04/09/1992, 05/16/1989, Additional history exists TdaP Immunization Completed 07/01/2010 Meningococcal Immunization (ACWY) Aged Out No longer eligible based on patient's age to complete this topic Pneumococcal Immunization Combined Aged Out No longer eligible based on patient's age to complete this topic Rotavirus Immunization Aged Out No lo nger eligible based on patient's age to complete this topic Procedures Procedure Name Priority Date/Time Associated Diagnosis Comments PATHOLOGY CYTOLOGY DOCUMENT MANAGEMENT ANALYST Routine 09/15/2017 9:25 AM HAIR SAMPLE MATCHER Encounter for well woman exam with routine gynecological exam from Last 3 Months or Most Recently Relevant to Health Maintenance Results * PATHOLOGY CYTOLOGY DOCUMENT MANAGEMENT ANALYST (09/15/2017 9:25 AM HAIR SAMPLE MATCHER) SPECIMEN ADEQUACY Satisfactory for evaluation. Endocervical cells present. 09/24/2017 11:57 AM [facility] DESCRIPTIVE DIAGNOSIS Negative for intraepithelial lesions. No dysplastic cells present. 09/24/2017 11:57 AM [facility] MATED EXAMINATION Analysis of this sample has been assisted by an automated imaging and review system (FastHealthprep Imaging System, [employer], [place], [place]). This case is further evaluated and finalized by a manufacturing teacher and/or pathologist. 09/24/2017 11:57 AM [facility] DISCLAIMER The PAP smear is a screening test designed to detect cancerous or precancerous cells of the uterine cervix. It is one of the best means available for detection of cervical cancer but still carries an inherent false-negative rate. ??The consequences of a false-negative PAP result can be minimized by adhering to current screening guidelines. ??The following are general guidelines recommended by the ACS, ASCP, ASCCP, and ACOG: ??PAP testing is recommended every three years for women 21-29, Co-Testing , a PAP test in conjunction with an HPV (Human Papillomavirus) test for women ages 30-65, and no PAP or HPV testing for women under the age of 21 or older than 65 unless clinically indicated. 09/24/2017 11:57 AM HAIR SAMPLE MATCHER [facility] Case Report Gynecologic Cytology Report ? Case: [id number] ? Authorizing Provider: ??Lance Ramírez MD ?Collected: ? 09/15/2017 09:25 AM ? Ordering Location: ? [facility] ? Received: ?09/15/2017 09:26 AM ? GROUP - OBSTETRICS AND ? GYNECOLOGY - INDY ? First Screen: ?Spaniol, Bibi M ? Specimen: ?Cervical/Endocerv ical, liquid based thin layer preparation (Thin Prep??), ? CERVIX/ENDOCERVIX ? 09/24/2017 11:57 AM HAIR SAMPLE MATCHER [facility] HPV Reflex if ASCUS? Yes 09/24/2017 11:57 AM HAIR SAMPLE MATCHER [facility] Specimen of unknown material (specimen) (Cervix/Endocerv ix) 09/15/2017 9:25 AM HAIR SAMPLE MATCHER 09/15/2017 9:26 AM HAIR SAMPLE MATCHER us Lance Ramírez MD PATHOLOGY/CYTOLOGY ORDERABLES Final Result [facility] [address] [place] [address], from Last 3 Months or Most Recently Relevant to Health Maintenance Care Teams Student Worker Relationship Specialty Start Date End Date Mariaelena Wooten PA [address] [place] [address] PCP - General Adult Medicine 05/28/18
--- OUTSIDE RECORDS SUMMARY | 2024-09-08 20:09 | XMS_ITS | Referral Summary ---
Author Organization [facility] Address [address] [place] [address] Care Team Providers Care Cloth Worker Name Role Phone Mariaelena Wooten Primary Care Provider [phone] Source Comments [facility] [employer],non-owned Affiliates and Associated Physician Practices is amultiple site organization consisting of ambulatory clinics and hospital sitesin [place], [place], [place] and [place]. This disclosure is being madepursuant to the Care Everywhere program and may not contain all information available regarding this patient. Last updated 18.[facility] [employer] Allergies No known active allergies Medications * Be aware that medications may not be up to date on this document. Alwaysverify current medications with the patient. Medication Sig Dispensed Refills Start Date End Date Status Desogestrel-Ethinyl Estradiol (APRI PO) Active Active Problems No known active problems Social History Tobacco Use Types Packs/Day Years Used Date Smoking Tobacco: Some Days Smokeless Tobacco: Never Sex and Gender Information Value Date Recorded Sex Assigned at Not on file Gender Identity Not on file Sexual Orientation Not on file Last Filed Vital Signs Vital Sign Reading Time Taken Comments Blood Pressure 122/84 09/30/2018 6:56 PM FOREST RESOURCE SPECIALIST Pulse 105 09/30/2018 6:56 PM FOREST RESOURCE SPECIALIST Temperature 37.7 ??C (99.8 ??F) 09/30/2018 6:56 PM CS T Respiratory Rate 18 09/30/2018 6:56 PM FOREST RESOURCE SPECIALIST Oxygen Saturation - - Inhaled Oxygen Concentration - - Weight 71.7 kg (158 lb) 09/30/2018 6:56 PM FOREST RESOURCE SPECIALIST Height 154.9 cm (5' 1 ) 09/30/2018 6:56 PM FOREST RESOURCE SPECIALIST Body Mass Index 29.85 09/30/2018 6:56 PM FOREST RESOURCE SPECIALIST Plan of Treatment Not on file Care Teams Cloth Worker Relationship Specialty Start Date End Date Mariaelena Wooten PA [address] [place] [phone] PCP - General 09/30/18
--- OUTSIDE RECORDS SUMMARY | 2024-09-08 20:09 | XMS_ITS | Patient Health Summary ---
Author Organization [facility] Address [address] [place] [address] Care Team Providers Care Dam Attendant Name Role Phone Mariaelena Wooten Primary Care Provider [phone] Note from [facility],non-owned Affiliates and Associated Physician Practices is amultiple site organization consisting of ambulatory clinics and hospital sitesin [place], [place], [place] and [place]. This disclosure is being madepursuant to the Care Everywhere program and may not contain all information available regarding this patient. Last updated 18.[facility] [employer] Allergies No known active allergies Medications * Be aware that medications may not be up to date on this document. Alwaysverify current medications with the patient. * Desogestrel-Ethinyl Estradiol (APRI PO) Active Problems No known active problems Social History Tobacco Use Types Packs/Day Years Used Date Smoking Tobacco: Some Days Smokeless Tobacco: Never Sex and Gender Information Value Date Recorded Sex Assigned at Not on file Gender Identity Not on file Sexual Orientation Not on file Last Filed Vital Signs Vital Sign Reading Time Taken Comments Blood Pressure 122/84 09/30/2018 6:56 PM CUFF SETTER LOCKSTITCH Pulse 105 09/30/2018 6:56 PM CUFF SETTER LOCKSTITCH Temperature 37.7 ??C (99.8 ??F) 09/30/2018 6:56 PM CS T Respiratory Rate 18 09/30/2018 6:56 PM CUFF SETTER LOCKSTITCH Oxygen Saturation - - Inhaled Oxygen Concentration - - Weight 71.7 kg (158 lb) 09/30/2018 6:56 PM CUFF SETTER LOCKSTITCH Height 154.9 cm (5' 1 ) 09/30/2018 6:56 PM CUFF SETTER LOCKSTITCH Body Mass Index 29.85 09/30/2018 6:56 PM CUFF SETTER LOCKSTITCH Procedures * INFLUENZA A+B - POINT OF CARE (AMB)(Performed 09/30/2018) Performed for Influenza Results * (ABNORMAL) INFLUENZA A+B - POINT OF CARE (AMB) (09/30/2018 7:12 PM CUFF SETTER LOCKSTITCH) Influenza A Antigen Rapid Positive(A) Negative Influenza B Antigen Rapid Negative Negative Influenza Internal Control Present NEGATIVE - POSITIVE Influenza Lot Number [id number] Influenza Expiration Date 04/09/20 Other NASOPHARYNGEAL SWAB / Unknown 09/30/2018 7:12 PM CUFF SETTER LOCKSTITCH Irish Batista METAL PUNCH PRESS OPERATOR-TELEVISION PROGRAM DIRECTOR LAB - POINT OF CARE ORDERABLES Care Teams Dam Attendant Relationship Specialty Start Date End Date Mariaelena Wooten PA [address] [place] [id number] PCP - General 09/30/18
== END 2024-09-06 17:03 | disposition home or self-care (01) ==
LOC: ANHLAB 17:04
PROVIDERS: Visit Provider Obstetrics & Gynecology
DX: Z01.812 Encounter for preprocedural laboratory examination (principal)
CPT/HCPCS: 36415; 85027; 86592; 86703; 86850; 86880; 86900; 86901; G0432

== ENCOUNTER 2024-09-07 05:51 | Inpatient (IN) | payer OTHER, SELFPAY ==
[2024-09-07] VITALS (47 sets, daily range): BP systolic 84–152; BP diastolic 51–93; PULSE 69–99; RESP 16–21; TEMP 36.3–36.8; O2SAT 94–100; BMI 43.7
[2024-09-07] MEDS: ACETAMINOPHEN 500 MG TABLET 1000 MG PO (06:18)
[2024-09-07] MEDS: LACTATED RINGERS 1,000 ML 125 ML IV CONT ×2 (06:24→07:46)
--- NOTE | 2024-09-07 06:55 | P.HP_ITS ---
H&P: HPI History of Present Illness Date/Time: 09/07/24 06:55 Chief Complaint: Term Narrative: 39-year-old multiparous at term with history of shoulder dystocia with injury to the infant. We have agreed to perform delivery.The patient understands the details of the procedure. The procedure has been explained in detail. She understands the risks. She understands that injuries may occur t hat result in hospitalization, more surgery, and severe illness. She understands risk of hemorrhage and infection. She denies any chest pain or shortness of breath. She denies any nausea, vomiting, fever, chills. Review of Systems Review of Systems: All systems reviewed & are unremarkable except as noted in HPI and below Constitutional: Constitutional: Denies chills, Denies fatigue, Denies fever(s) and Denies weakness Eyes: Eyes: Denies blurry vision, Denies change in vision, Denies loss of peripheral vision, Denies loss of vision, Denies other visual disturbances and Denies eye pain ENT: Denies vertigo, Denies dizziness, Denies hearing loss, Denies mouth pain, Denies nasal obstruction, Denies neck mass and Denies neck pain Cardiovascular: Cardiovascular: Denies chest pain, Denies diaphoresis, Denies syncope, Denies leg edema and Denies dyspnea Respiratory: Respiratory: Denies chest congestion, Denies cough, Denies hemoptysis, Denies dyspnea and Denies wheezing Gastrointestinal: Gastrointestinal: Denies abdominal pain, Denies constipation, Denies diarrhea, Denies nausea and Denies vomiting Genitourinary: Genitourinary: Denies hematuria, Denies change in libido, Denies nocturia, Denies genital lesions, Denies flank pain and Denies urinary urgency Musculoskeletal: Musculoskeletal: Denies abnormal gait, Denies back pain, Denies myalgias, Denies arthralgias, Denies joint swelling, Denies muscle weakness and Denies neck pain Integumentary/Breasts: Skin/Breast: Denies swelling, Denies breast pain, Denies breast mass, Denies dry skin, Denies nipple discharge, Denies unusual bruising and Denies jaundice Neurologic: Denies Neuro-related abnormal movements, Denies Abnormal speech present, Denies abnormal gait, Denies behavioral changes, Denies confusion, Denies vertigo, Denies dizziness, Denies syncope, Denies loss of vision, Denies memory loss, Denies convulsions and Denies weakness Psychiatric: Psychiatric: Denies abnormal sleep pattern, Denies behavioral changes, Denies change in libido, Denies confusion, Denies depression, Denies anhedonia and Denies memory loss Endocrine: Endocrine: Reports no additional endocrine complaints, Denies change in libido and Denies fatigue Hematologic/Lymphatic: Hematologic/Lymphatic: Reports no additional hematologic/lymphatic complaints Allergic/Immunologic: Allergic/Immunologic: Reports no additional allergic/immunologic complaints and Denies wheezing [facility] Family History Family History (Updated 08/30/24 @ 13:31 by Eugenie Gould RN) Other Hypertension Social History Social History Smoking status: Current every day smoker Tobacco type: e-cigarettes/vaping Second hand tobacco smoke exposure: Yes Substance use: never Do You Feel Safe in your Home?: Yes Lack of Transportation: No Lack of Food: Never True Current Housing: I Have Housing Concerned About Future Housing: No Difficulty Paying Gas/Electric Bills: No Difficulty Paying for Meds: No Currently Unemployed: No Education: Master's Degree or Higher Difficulty w/ Childcare or Family Care: No Spiritual care concerns: No Meds Home Medications and Allergies Home Medications ?Medication ?Instructions ?Recorded ?Confirmed ?Type labetalol 200 mg tablet 200 mg PO Q12H 14 days #28 tabs 04/08/24 09/07/24 Rx vit no.95-ferrous 1 tablet PO DAILY 08/30/24 09/07/24 History fumarate 28 mg-folic acid 800 mcg tablet () Allergies Allergy/AdvReac Type Severity Reaction Status Date / Time No Known Allergies Allergy Verified 08/30/24 13:48 Vital Signs Vital Signs - 24 hr 09/07/24 06:09 09/07/24 06:15 09/07/24 06:18 Temperature 97.9 F Pulse Rate 93 93 Blood Pressure 152/77 H 139/75 Oxygen Delivery 09/07/24 06:27 Temperature Pulse Rate Blood Pressure Oxygen Delivery Room Air Exam Const: General: cooperative, healthy appearing, comfortable and no acute distress Orientation/consciousness: oriented to person, oriented to place and oriented to time HENMT: Head: normal to inspection Ears: external ears normal Face/Nose/Sinus: Normal external nose present and normal facial exam Face and sinus: normal facial exam Eyes: General: appearance normal, both eyes and all related structures Neck: Neck: normal visual inspection, trachea midline and supple Resp: Auscultation: clear to auscultation bilaterally, no crackles, no rales, no rhonchi and no wheezes Cardio: Rate: regular rate Rhythm: regular rhythm Heart sounds: no click, no murmurs and no rubs GI: GI Palp: No abdominal tenderness, No Soft to palpation, No Tenderness to palpation present (GI) and No Palpable mass present Auscultation: normal bowel sounds Skin: General skin exam: normal color and no rashes or lesions noted Neuro: General: oriented to person, oriented to place and oriented to time Extrem: General: normal to inspection, no joint enlargement, no clubbing, cyanosis or edema, no pedal edema and no calf tenderness Psych: Appearance: grossly normal Mental Status: mental status grossly normal Speech and movement: Normal speech and movement present Assessment and Plan Assessment and plan (1) History of shoulder dystocia: Status: Acute (2) Term : Code(s): Z34.90 - Encounter for supervision of normal , unspecified, unspecified trimester Status: Acute Plan this patient is a 39-year-old multiparous female at 39 weeks gestation. She has a history of shoulder dystocia with injury. We agreed to perform delivery. She understands the risks, benefits, and alternatives. She has completed informed consent process is ready to proceed.
--- NOTE | 2024-09-07 06:59 | WPDHPUPDATE1 ---
History and Physical Update Update Date/Time: 09/07/24 06:59 History and Physical has been reviewed, including an updated exam of the patient. There are NO changes in the patient's condition. Risks, benefits, and alternatives have been discussed and questions answered. Patient agrees to proceed with procedure.
--- NOTE | 2024-09-07 07:36 | P.PNAN_ITS ---
Anes - Initial Pre Proc Eval Procedure: Operation Date: 09/07/24 07:30 Proposed Procedures p Primary Section - Gabino Swann MD Date/Time: 09/07/24 07:36 Surgeon: Gabino Swann MD Pre Op Diagnosis: h/o shoulder dystocia Pre Op Diagnosis: h/o shoulder dystocia Patient Data Age: 39 Gender: F Height: 1.55 m Weight: 105 kg Last Vital Signs Temp 36.6 C 09/07/24 06:18 Pulse 93 09/07/24 06:15 Resp 18 09/07/24 06:15 BP 139/75 09/07/24 06:15 O2 Del Method Room Air 09/07/24 06:27 Allergies Allergy/AdvReac Type Severity Reaction Status Date / Time No Known Allergies Allergy Verified 08/30/24 13:48 Home Medications ?Medication ?Instructions ?Recorded ?Confirmed ?Type labetalol 200 mg tablet 200 mg PO Q12H 14 days #28 tabs 04/08/24 09/07/24 Rx vit no.95-ferrous 1 tablet PO DAILY 08/30/24 09/07/24 History fumarate 28 mg-folic acid 800 mcg tablet () hg 10.9/ hct 33.6, plt 192 Patient hx anesthesia problems: none Family hx anesthesia problems: none Results Review: All pre-operative results and documents have been reviewed as part of the pre- operative evaluation. PMFSH Family History Family History Other Hypertension Social History Social History Smoking status: Current every day smoker Tobacco type: e-cigarettes/vaping Second hand tobacco smoke exposure: Yes Substance use: never Do You Feel Safe in your Home?: Yes Lack of Transportation: No Lack of Food: Never True Current Housing: I Have Housing Concerned About Future Housing: No Difficulty Paying Gas/Electric Bills: No Difficulty Paying for Meds: No Currently Unemployed: No Education: Master's Degree or Higher Difficulty w/ Childcare or Family Care: No Spiritual care concerns: No Anes - Eval Final PreProcedure Day of Procedure 09/07/24 07:36 Patient weight: obese Heart: regular rate and rhythm Lungs: normal air movement Airway: Mallampati scale class II Neurological: alert and oriented Last oral intake: >/= 8 hours ASA classification: III Emergent: no Anesthetic plan: proceed Anesthesia type and monitoring: regional spinal and standard monitoring Other findings: PF Morphine for post op pain control Results Review: All pre-operative results and documents have been reviewed as part of the pre- operative evaluation. Informed Consent: The patient's anesthetic plan and its attendant risks and benefits were discussed with the patient/family/POA. Questions were solicited and answers provided to the satisfaction of the patient/family/POA.
[2024-09-07] MEDS: ONDANSETRON INJ 4 MG/2 ML VIAL IV PUSH (08:03)
[2024-09-07] MEDS: FAMOTIDINE 20 MG/2 ML VIAL IV PUSH (08:03)
[2024-09-07] MEDS: ceFAZolin 2 GM/D5W 50 ML 2 GM/50 ML BAG IVPB (08:07)
--- NOTE | 2024-09-07 08:54 | W.PM.OBCSD ---
OB - Delivery Note Procedure Delivery date: 09/07/24 Pre-op diagnosis: Other (History of shoulder dystocia with injury) Post-op Diagnosis: Same Procedure Performed: Primary Surgeon: Gabino Swann MD Anesthesia type: Spinal Description of Procedure/Findings: The patient was taken the operating room.? She was prepped and draped in dorsal supine position with a leftward tilt.? This was done after spinal anesthetic was applied.? A low-transverse skin incision was made and carried down till of the fascia with the knife.? The fascial incision was made with the knife.? The fascial incision was extended laterally with Lawson scissors.? The fascia was tented upward superiorly and inferiorly the rectus muscles were dissected off bluntly.? The rectus muscles were the midline.? The preperitoneal fat and peritoneum were dissected open bluntly at the superior aspect of the rectus muscles.? The peritoneal incision was extended superior and inferior with good position of bladder.? The uterine incision was made with a scalpel down to the level of the amniotic cavity.? The amniotic cavity was entered bluntly.? The was delivered.? The cord was clamped and cut and the infant was handed off to waiting pediatric staff.? Cord bloods were obtained.? The placenta was removed manually.? The uterus was exteriorized.? The uterus was cleared of all clots, debris and membranes.? The uterus was closed in 0 Vicryl running lock fashion.? An imbricating over a was placed along the incision line as well.? The uterus was returned to the abdomen.? The gutters were cleared of all clots and debris.? The fascia was closed with 0 Vicryl running fashion.? The subcutaneous tissue was irrigated pinpoint bleeders were cauterized.? The skin was closed with subcuticular absorbable vidya.? The skin incision line was covered with glue.? The patient tolerated the procedure well.? She has taken recovery room in stable condition.? Sponge lap and needle counts were correct x2.? [place] Baby Date of : 09/07/24
[2024-09-07] MEDS: LIDOCAINE 5% PATCH 1 PATCH TRANSDERM (10:28)
[2024-09-07] MEDS: DEXTROSE 5%/0.45% SOD CHL 1,000 ML 125 ML IV CONT (11:43)
[2024-09-07] MEDS: LABETALOL HCL 100 MG TABLET 200 MG PO ×2 (11:45→23:14)
[2024-09-07] MEDS: MULTIVIT/MIN/PREN/FOL AC/IRON TABLET 1 TAB PO (11:46)
[2024-09-07] MEDS: DOCUSATE SODIUM 100 MG CAPSULE PO ×2 (11:46→17:00)
[2024-09-07] MEDS: ACETAMINOPHEN 325 MG TABLET 650 MG PO ×3 (11:47→23:13)
[2024-09-07] MEDS: SIMETHICONE 80 MG TAB.CHEW PO ×2 (11:47→17:38)
[2024-09-07] MEDS: KETOROLAC 15 MG/ML VIAL (*BKC) IV PUSH ×3 (11:48→23:10)
--- NOTE | 2024-09-07 12:31 | OBPPTRN ---
Patient transferred to post room #284 via ( stretcher) Support person present. Oriented to unit, room, information board, rooming in, admission packet and security measures. Patient verbalizes understanding.
--- NOTE | 2024-09-07 13:17 | PC.NURSE ---
Introductions were made, then consulted with patient to assess needs related to . Mother led the conversation with her?plans to feed?her infant and the?experience so far. Infants initial feeding after went well and mother states she feels confident latching independently. No latch was observed at this time. Encouraged understanding of the benefits of skin to skin (demonstrating unwrapping infant and placing upright on her chest), stimulating with massage touch, changing positions to encourage wakefulness, how to watch for early feeding cues, responsive feeding, feeding on demand (aiming for 8-12 times in 24 hours, about every 2-3 hours), milk production, building/maintaining a milk supply, duration of feeding, signs of adequate intake/output and how to record on the feeding sheet. Mother works well with her with encouragement and education. Reviewed positioning and ear, shoulder, hip alignment, supporting the breast to facilitate a deep latch, asymmetrical latch (off-center), leading with the chin with a big, open, wide gape and body close to mother. Parents voiced understanding of information, demonstrated learning and will call if there is a request for assistance. Reported to the Primary RN.
--- NOTE | 2024-09-07 13:22 | PC.NURSE ---
On 09/07/24, the student, Ember Gorman, provided care and completed [facility] documentation on this patient. I have reviewed the student's documentation and agree with the findings.
[2024-09-08 04:30] VITALS: BP 134/75; PULSE 84; RESP 16; TEMP 36.4; O2SAT 99
[2024-09-08] MEDS: ACETAMINOPHEN 325 MG TABLET 650 MG PO ×4 (05:13→23:54)
[2024-09-08] MEDS: KETOROLAC 15 MG/ML VIAL (*BKC) IV PUSH (05:15)
[2024-09-08 05:17] LABS: Basophils Percent Auto 0.3 % (0.2-1.2); Eosinophils Absolute Auto 0.1 K/mm3 (0-0.3); Eosinophils Percent Auto 1.2 % (0-4.4); Hematocrit 29.8 % (37.0-47.0); Hemoglobin 9.5 g/dL (12.0-15.0); Immature Granulocyte Absolute 0.09 K/mm3 (0.00-0.031); Immature Granulocyte Percent A 0.9 % (0-0.5); Lymphocytes Absolute Auto 1.07 K/mm3 (0.9-3.2); Lymphocytes Percent Auto 10.9 % (18.3-44.2); Mean Corpuscular HGB Conc 31.9 g/dl (32-36); Mean Corpuscular Hemoglobin 29.5 pg (26-34); Mean Corpuscular Volume 92.5 fl (80-100); Monocytes Absolute Auto 1.2 K/mm3 (0.1-0.6); Monocytes Percent Auto 12.3 % (2.6-8.5); Neutrophils Absolute Auto 7.3 K/mm3 (1.3-6.7); Neutrophils Percent Auto 74.4 % (45.5-73.1); Platelet Count Result 155 k/mm3 (150-375); Red Blood Count 3.22 M/mm3 (4.2-5.4); Red Cell Distribution Width 15.9 % (11.5-14.5); White Blood Count 9.9 K/mm3 (4.5-10.0)
[2024-09-08] MEDS: DOCUSATE SODIUM 100 MG CAPSULE PO ×2 (07:04→17:44)
[2024-09-08] MEDS: SIMETHICONE 80 MG TAB.CHEW PO ×3 (07:04→17:44)
[2024-09-08] MEDS: POLYSACCHARIDE IRON COMPLEX 150 MG CAPSULE PO ×2 (07:04→17:44)
[2024-09-08] MEDS: MULTIVIT/MIN/PREN/FOL AC/IRON TABLET 1 TAB PO (07:04)
[2024-09-08 08:32] VITALS: BP 147/88; PULSE 90; RESP 18; TEMP 36.7; O2SAT 99
--- NOTE | 2024-09-08 09:21 | PC.NURSE ---
On 09/08/24, the [facility] students Karla and Noa,, provided care and completed [facility] documentation on this patient. I have reviewed the student's documentation and agree with the findings.
--- NOTE | 2024-09-08 09:36 | P.PNOB_ITS ---
OB - PN: Subj Subjective Date/time seen: 09/08/24 09:36 Patient comments: no complaints, pain well controlled, tolerating diet and flatus present OB - PN: Obj Data Labs 09/08/24 04:10 Labs: Laboratory Results - last 24 hr 09/08/24 09/08/24 04:10 07:03 WBC 9.9 RBC 3.22 L Hgb 9.5 L Hct 29.8 L MCV 92.5 MCH 29.5 MCHC 31.9 L RDW 15.9 H Plt Count 155 MPV 11.0 H Immature Gran % (Auto) 0.9 H Neut % (Auto) 74.4 H Lymph % (Auto) 10.9 L Merrick % (Auto) 12.3 H Eos % (Auto) 1.2 Baso % (Auto) 0.3 Lymph # (Auto) 1.07 Merrick # (Auto) 1.2 H Eos # (Auto) 0.1 Baso # (Auto) 0.0 Abs Immat Gran (auto) 0.09 H Absolute Neuts (auto) 7.3 H Absolute Nucleated RBC 0.000 Nucleated RBC % 0.0 Blood Type O Negative Antibody Screen TNP Screen Negative Baby's Blood Type O pos Baby's JUDD Negative Doses of RhIg Required 1 OB - PN A/P Plan day: 1 Comments: Post Op LTCS - no problems, routine recovery Time Spent With Patient Time: Total time spent is greater than 50% in coordination of care (as documented) at patient's floor/unit and/or counseling patient: Exam 2 Const: General: cooperative, healthy appearing, comfortable and no acute distress Resp: Auscultation: no crackles, no rales, no rhonchi and no wheezes Cardio: Rhythm: regular rhythm Heart sounds: no click and no murmurs GI: Inspection: non-distended Auscultation: normal bowel sounds Extrem: General: normal to inspection, no pedal edema and no calf tenderness
--- NOTE | 2024-09-08 10:25 | PC.NURSE ---
Mother verbalizes she is able to independently latch with appropriate positioning and alignment. She denies any nipple discomfort and is responsively . Per mom, baby just fed for 5 mins in the football position on her right breast without any pain or discomfort. had been cluster feeding through the night and was upset after coming off the breast, RN encouraged mother to burp infant and place him skin to skin to soothe and calm, and to watch for feeding cues. Mother seemed anxious and slightly overwhelmed but asked appropriate questions about cluster feeding and latching. Infant is currently meeting outcomes for weight, output, jaundice, blood sugar and feeding frequencies of 8-12 times in 24 hours. Mother declines any additional assistance or education at this time. Mother is encouraged to call for assistance if her infant doesn?t latch, pain with latching, questions or concerns. Mother voiced understanding of information shared along with the mom/baby guide for an additional resource. RN noticed in mother's room there were two electric vapes at the bedside, RN did not discuss with mother at that time but did let provider relations rep and primary RN know. RN to look up information regarding using vapes while and she or the next shift CLC will discuss with mother.
[2024-09-08] MEDS: LIDOCAINE 5% PATCH 1 PATCH TRANSDERM (11:36)
[2024-09-08] MEDS: LABETALOL HCL 100 MG TABLET 200 MG PO ×2 (11:36→23:56)
[2024-09-08] MEDS: IBUPROFEN 600 MG TABLET PO ×3 (11:37→23:54)
--- NOTE | 2024-09-08 14:12 | WPDANLDPN2 ---
Anes-Prog Note L&D Date/Time: 09/08/24 14:12 Comfortable throughout: labor and delivery Neuraxial method: epidural Epidural/Spinal procedure site: clean & non-tender Neuro status: Neuro function grossly intact. Cardiovascular status: normal Respiratory status: normal Airway patency: baseline Mental status: baseline Post-Op hydration status: normal Vital Signs: Last Vital Signs Temp 36.7 C 09/08/24 08:32 Pulse 90 09/08/24 08:32 Resp 18 09/08/24 08:32 BP 147/88 H 09/08/24 08:32 Pulse Ox 99 09/08/24 08:32 O2 Del Method Room Air 09/07/24 16:30 Pain score (VAS): 08/26 I/O: Intake & Output 09/07/24 09/08/24 09/08/24 23:59 07:59 15:59 Intake Total 600 Output Total 500 1900 Balance 100 -1900 Post-procedural complaints: none Patient feedback: Patient satisfied with anesthetic care.
[2024-09-08] MEDS: RHO(D) IMMUNE GLOBULIN 300 MCG/2 ML SYRINGE IM (15:24)
--- NOTE | 2024-09-08 17:46 | PC.NURSE ---
1700. Met with patient to discuss her pump from home and give demonstration on how to set it up, utilize it and clean it. She uses a Spectra pump she got from insurance. Instructions given on cleaning, care, usage, that there should be no pain, pumping schedule for milk production, collection, and storage of human milk. Patient was assessed for correct placement, flange size, to pump for comfort and nipple stretching/stimulation for adequate milk production every 3 hours (8 times in 24 hours) 1-2 times at night. Parents are encouraged to record the pumping schedule on the feeding sheet.?Mother voiced understanding of the education shared along with mom/baby guide and the pump measurement, flange fit handout for additional resource information. Reported to the Primary RN.
[2024-09-08 20:42] VITALS: BP 138/77; PULSE 101; RESP 18; TEMP 36.8; O2SAT 97
--- OUTSIDE RECORDS SUMMARY | 2024-09-08 20:51 | XMS_ITS | Clinical Summary ---
Author Organization [facility] [employer] Address [address] [place] [address] Care Team Providers Care Mexican Food Maker Hand Name Role Phone Mariaelena Wooten Primary Care Provider [phone] [facility] [employer],non-owned Affiliates and Associated Physician Practices is amultiple site organization consisting of ambulatory clinics and hospital sitesin [place], [place], [place] and [place]. This disclosure is being madepursuant to the Care Everywhere program and may not contain all information available regarding this patient. Last updated 18.[facility] [employer] Allergies No known active allergies Medications * [...] Comments Blood Pressure 122/84 09/30/2018 6:56 PM POULTRY PROCESS WORKER Pulse 105 09/30/2018 6:56 PM POULTRY PROCESS WORKER Temperature 37.7 ??C (99.8 ??F) 09/30/2018 6:56 PM CS T Respiratory Rate 18 09/30/2018 6:56 PM POULTRY PROCESS WORKER Oxygen Saturation - - Inhaled Oxygen Concentration - - Weight 71.7 kg (158 lb) 09/30/2018 6:56 PM POULTRY PROCESS WORKER Height 154.9 cm (5' 1 ) 09/30/2018 6:56 PM POULTRY PROCESS WORKER Body Mass Index 29.85 09/30/2018 6:56 PM POULTRY PROCESS WORKER Plan of Treatment Health Maintenance Due Date [...] age to complete this topic Care Teams Mexican Food Maker Hand Relationship Specialty Start Date End Date Mariaelena Wooten PA [address] [place] [phone] PCP - General 09/30/18
--- OUTSIDE RECORDS SUMMARY | 2024-09-08 20:51 | XMS_ITS | Patient Health Summary ---
Author Organization [facility] Address [address] [place] [address] Care Team Providers Care High School Foreign Language Teacher Name Role Phone Mariaelena Wooten Primary Care Provider [phone] Note from [facility],non-owned Affiliates and Associated Physician Practices is amultiple site organization consisting of ambulatory clinics and hospital sitesin [place], [place], [place] and [place]. This disclosure is being madepursuant to the Care Everywhere program and may not contain all information available regarding this patient. Last updated 18.[facility] [employer] Allergies No known active allergies Medications * [...] Comments Blood Pressure 122/84 09/30/2018 6:56 PM AUDIO TAPE LIBRARIAN Pulse 105 09/30/2018 6:56 PM AUDIO TAPE LIBRARIAN Temperature 37.7 ??C (99.8 ??F) 09/30/2018 6:56 PM CS T Respiratory Rate 18 09/30/2018 6:56 PM AUDIO TAPE LIBRARIAN Oxygen Saturation - - Inhaled Oxygen Concentration - - Weight 71.7 kg (158 lb) 09/30/2018 6:56 PM AUDIO TAPE LIBRARIAN Height 154.9 cm (5' 1 ) 09/30/2018 6:56 PM AUDIO TAPE LIBRARIAN Body Mass Index 29.85 09/30/2018 6:56 PM AUDIO TAPE LIBRARIAN Procedures * INFLUENZA A+B - POINT OF CARE (AMB)(Performed 09/30/2018) Performed for Influenza Results * (ABNORMAL) INFLUENZA A+B - POINT OF CARE (AMB) (09/30/2018 7:12 PM AUDIO TAPE LIBRARIAN) Influenza A Antigen Rapid Positive(A) Negative Influenza B Antigen Rapid Negative Negative Influenza Internal Control Present NEGATIVE - POSITIVE Influenza Lot Number [id number] Influenza Expiration Date 04/09/20 Other NASOPHARYNGEAL SWAB / Unknown 09/30/2018 7:12 PM AUDIO TAPE LIBRARIAN Irish Batista STAPLE PROCESSING MACHINE OPERATOR-CHANGE ATTENDANT LAB - POINT OF CARE ORDERABLES Care Teams High School Foreign Language Teacher Relationship Specialty Start Date End Date Mariaelena Wooten PA [address] [place] [phone] PCP - General 09/30/18
--- OUTSIDE RECORDS SUMMARY | 2024-09-08 20:51 | XMS_ITS | Referral Summary ---
Author Organization [facility] Address [address] [facility] [place] [address] Care Team Providers Care Bus Company Manager Name Role Phone Mariaelena Wooten Primary Care Provider [phone] Source Comments [facility] [employer],non-owned Affiliates and Associated Physician Practices is amultiple site organization consisting of ambulatory clinics and hospital sitesin [place], [place], [place] and [place]. This disclosure is being madepursuant to the Care Everywhere program and may not contain all information available regarding this patient. Last updated 18.[facility] [employer] Allergies No known active allergies Medications * [...] Comments Blood Pressure 122/84 09/30/2018 6:56 PM CLAY PRESS OPERATOR Pulse 105 09/30/2018 6:56 PM CLAY PRESS OPERATOR Temperature 37.7 ??C (99.8 ??F) 09/30/2018 6:56 PM CS T Respiratory Rate 18 09/30/2018 6:56 PM CLAY PRESS OPERATOR Oxygen Saturation - - Inhaled Oxygen Concentration - - Weight 71.7 kg (158 lb) 09/30/2018 6:56 PM CLAY PRESS OPERATOR Height 154.9 cm (5' 1 ) 09/30/2018 6:56 PM CLAY PRESS OPERATOR Body Mass Index 29.85 09/30/2018 6:56 PM CLAY PRESS OPERATOR Plan of Treatment Not on file Care Teams Bus Company Manager Relationship Specialty Start Date End Date Mariaelena Wooten PA [address] [place] [phone] PCP - General 09/30/18
--- OUTSIDE RECORDS SUMMARY | 2024-09-08 20:52 | XMS_ITS | Clinical Summary ---
Author Organization [facility] CALL C EN[facility] Address [address] [place] [address] Phone Care Team Providers Care Airset Caster Name Role Phone Mariaelena Wooten Primary Care Provider [phone] Allergies No known active allergies Medications No [...] Priority Date/Time Associated Diagnosis Comments PATHOLOGY CYTOLOGY ELECTRICAL TEST TECHNICIAN Routine 09/15/2017 9:25 AM SAGGER PREPARER Encounter for well woman exam with routine gynecological exam from Last 3 Months or Most Recently Relevant to Health Maintenance Results * PATHOLOGY CYTOLOGY ELECTRICAL TEST TECHNICIAN (09/15/2017 9:25 AM SAGGER PREPARER) SPECIMEN ADEQUACY Satisfactory for evaluation. Endocervical cells present. 09/24/2017 11:57 AM [facility] DESCRIPTIVE DIAGNOSIS Negative for intraepithelial lesions. No dysplastic cells present. 09/24/2017 11:57 AM [facility] MATED EXAMINATION Analysis of this sample has been assisted by an automated imaging and review system ([employer] Fast [employer] Elegant [employer]t [employer] Appprep Imaging System, [employer], [place], [place]). This case is further evaluated and finalized by a cops and/or pathologist. 09/24/2017 11:57 AM [facility] DISCLAIMER The PAP smear is a [...] 65 unless clinically indicated. 09/24/2017 11:57 AM SAGGER PREPARER [facility] Case Report Gynecologic Cytology Report ? Case: [id number] ? Authorizing Provider: ??Lance Ramírez MD ?Collected: ? 09/15/2017 09:25 AM ? Ordering Location: ? [facility] ? Received: ?09/15/2017 09:26 AM ? GROUP - OBSTETRICS AND ? GYNECOLOGY - INDY ? First Screen: ?Spaniol, Bbii M ? Specimen: ?Cervical/Endocerv ical, liquid based thin layer preparation (Thin Prep??), ? CERVIX/ENDOCERVIX ? 09/24/2017 11:57 AM SAGGER PREPARER [facility] HPV Reflex if ASCUS? Yes 09/24/2017 11:57 AM SAGGER PREPARER [facility] Specimen of unknown material (specimen) (Cervix/Endocerv ix) 09/15/2017 9:25 AM SAGGER PREPARER 09/15/2017 9:26 AM SAGGER PREPARER us Lance Ramírez MD PATHOLOGY/CYTOLOGY ORDERABLES Final Result [facility] [address] [place] [address], from Last 3 Months or Most Recently Relevant to Health Maintenance Care Teams Airset Caster Relationship Specialty Start Date End Date Mariaelena Wooten PA [address] [place] [address] PCP - General Adult Medicine 05/28/18
[2024-09-08 23:56] VITALS: PULSE 108
[2024-09-09] MEDS: DOCUSATE SODIUM 100 MG CAPSULE PO (06:27)
[2024-09-09] MEDS: MULTIVIT/MIN/PREN/FOL AC/IRON TABLET 1 TAB PO (06:27)
[2024-09-09] MEDS: ACETAMINOPHEN 325 MG TABLET 650 MG PO (06:27)
[2024-09-09] MEDS: SIMETHICONE 80 MG TAB.CHEW PO (06:27)
[2024-09-09] MEDS: POLYSACCHARIDE IRON COMPLEX 150 MG CAPSULE PO (06:27)
[2024-09-09] MEDS: IBUPROFEN 600 MG TABLET PO (06:27)
[2024-09-09 07:35] VITALS: BP 134/73; PULSE 85; RESP 16; TEMP 37.1; O2SAT 98
--- NOTE | 2024-09-09 08:04 | P.PNOB_ITS ---
OB - PN: Subj Subjective Date/time seen: 09/09/24 08:04 Interval history: post op day 1 voiding without difficulty, flatus present desires d/c home OB - PN: Obj Data Labs 09/08/24 04:10 Labs: Laboratory Results - last 24 hr 09/08/24 07:03 Blood Type O Negative Antibody Screen TNP Screen Negative Baby's Blood Type O pos Baby's JUDD Negative Doses of RhIg Required 1 OB - PN A/P Plan day: 2 Plan: routine care and discharge home Time Spent With Patient Time: Total time spent is greater than 50% in coordination of care (as documented) at patient's floor/unit and/or counseling patient: Review of Systems 2 Review of Systems: All systems reviewed & are unremarkable except as noted in HPI and below Exam 2 Const: General: cooperative and healthy appearing Resp: Effort & Inspection: normal respiratory effort GI: Other: incision CDI Skin: General skin exam: normal color Neuro: General: patient oriented x3
--- NOTE | 2024-09-09 08:07 | PM.OBDSVD ---
DS: Admitting Diagnosis Discharge Date 09/09/24 Admitting Diagnosis section DS: Discharge Diagnosis Discharge Diagnosis (1) Delivery by section: Status: Acute OB - DS: Summary OB Procedures : None OB Procedures Intrapartum: OB Procedures: : None Peripartum Data Procedures: Procedures Operation Date: 09/07/24 07:30 Actual Procedure Side Surgeon p Section Gabino Swann MD Time Spent with Patient Time attestation: Total time spent providing and/or coordinating discharge services: DS: Data Data Completed and Pending Labs on day of discharge: Labs from last 24 hours 09/08/24 07:03 Blood Type O Negative Antibody Screen TNP Screen Negative Baby's Blood Type O pos Baby's JUDD Negative Doses of RhIg Required 1 Discharge Plan Discharge Attending physician on discharge: Gabino Swann Discharging Clinician: [place] Mac Activity: pelvic rest Diet: regular Patient Language: [place] Islander Discharge Medications: New hydrocodone-acetaminophen 5-325 mg Tablet 1 tablet PO Q3H PRN (Reason: Breakthrough Pain Rated 4-6) 15 Days Qty: 25 0RF labetalol 100 mg Tablet 200 mg PO Q12H Qty: 60 0RF Discontinued labetalol 200 mg Tablet 200 mg PO Q12H 14 Days Qty: 28 0RF No Action PNV [id number] fumarate-FA [] 28 mg iron- 800 mcg tablet 1 tablet PO DAILY Date of admission: 09/07/24 05:51 Primary Care Provider: UNKNOWN,DOCTOR Admitting Provider: Gabino Swann Attending physician on admission: Gabino Swann Condition: Stable
--- NOTE | 2024-09-09 10:10 | PC.NURSE ---
1010 Consulted with mother concerning needs and she shared her ability to independently latch optimally without pain. Mother requested assistance with obtaining a deeper latch, mother shown the football position and infant was able to optimally latch without pain to her right breast. Mother is feeding appropriately for growth of infant and understands stimulating to eat if needed. Infant has had appropriate feedings in the last 24 hours meets the outcomes for weight, output, blood sugar and jaundice at this time. Mother does use a nicotine vape and was given education information from the [employer] web site. Reinforced understanding of milk production, transition of milk, signs of adequate intake, transition of stool, prevention/relief of engorgement, plugged ducts, mastitis, responsive watching for feeding cues, the different methods of stimulating to breastfeed 1-3 hours after the start of the last feeding, community resources, and when to call a provider using the resource of the feeding sheet along with the mom and baby guide. Mother voiced understanding of the information shared, is confident to continue effectively her infant at home, when to call for assistance, denies any additional assistance or education at this time. Reported to the Primary RN.
== END 2024-09-09 11:43 | disposition home or self-care (01) | DRG 787 ==
LOC: ANHLDR 05:54 → ANHOB2 11:09
PROVIDERS: Admitting Provider Obstetrics & Gynecology; Visit Provider Obstetrics & Gynecology
PROC: 10D00Z1 Extraction of Products of Conception, Low, Open Approach (ICD-10-PCS; CPT 59514; principal; 2024-09-07 07:30)
DX: O99.892 Other specified diseases and conditions complicating childbirth (principal); O10.92 Unspecified pre-existing hypertension complicating childbirth; Z37.0 Single live birth; Z3A.38 38 weeks gestation of pregnancy; Z87.59 Personal history of other complications of pregnancy, childbirth and the puerperium
CPT/HCPCS: 36415; 85025; 85461; 86850; 86900; 86901; 90384; A9270; J0690; J1885; J2274; J2371; J2405; J2590; J2790; J7120

== ENCOUNTER 2024-09-10 01:51 | Inpatient (IN) | payer OTHER, SELFPAY ==
--- OUTSIDE RECORDS SUMMARY | 2024-09-09 23:43 | XMS_ITS | Clinical Summary ---
Author Organization [facility] Address [address] [place] [address] Phone Care Team Providers Care Unit Aide Name Role Phone Mariaelena Wooten Primary Care Provider [phone] Allergies No known active allergies Medications No [...] Priority Date/Time Associated Diagnosis Comments PATHOLOGY CYTOLOGY ASSISTANT DEPARTMENT MANAGER Routine 09/15/2017 9:25 AM DINKEY ENGINE MECHANIC Encounter for well woman exam with routine gynecological exam from Last 3 Months or Most Recently Relevant to Health Maintenance Results * PATHOLOGY CYTOLOGY ASSISTANT DEPARTMENT MANAGER (09/15/2017 9:25 AM DINKEY ENGINE MECHANIC) SPECIMEN ADEQUACY Satisfactory for evaluation. Endocervical cells present. 09/24/2017 11:57 AM [facility] DESCRIPTIVE DIAGNOSIS Negative for intraepithelial lesions. No dysplastic cells present. 09/24/2017 11:57 AM [facility] MATED EXAMINATION Analysis of this sample has been assisted by an automated imaging and review system (Imaginatikprep Imaging System, [employer], [place], [place]). This case is further evaluated and finalized by a green jobs trainer and/or pathologist. 09/24/2017 11:57 AM [facility] DISCLAIMER The PAP smear is a [...] 65 unless clinically indicated. 09/24/2017 11:57 AM DINKEY ENGINE MECHANIC [facility] Case Report Gynecologic Cytology Report ? Case: [id number] ? Authorizing Provider: ??Lance Ramírez MD ?Collected: ? 09/15/2017 09:25 AM ? Ordering Location: ? [facility] ? Received: ?09/15/2017 09:26 AM ? GROUP - OBSTETRICS AND ? GYNECOLOGY - INDY ? First Screen: ?Spaniol, Bibi M ? Specimen: ?Cervical/Endocerv ical, liquid based thin layer preparation (Thin Prep??), ? CERVIX/ENDOCERVIX ? 09/24/2017 11:57 AM DINKEY ENGINE MECHANIC [facility] HPV Reflex if ASCUS? Yes 09/24/2017 11:57 AM DINKEY ENGINE MECHANIC [facility] Specimen of unknown material (specimen) (Cervix/Endocerv ix) 09/15/2017 9:25 AM DINKEY ENGINE MECHANIC 09/15/2017 9:26 AM DINKEY ENGINE MECHANIC us Lance Ramírez MD PATHOLOGY/CYTOLOGY ORDERABLES Final Result [facility] [address] [place] [address], from Last 3 Months or Most Recently Relevant to Health Maintenance Care Teams Unit Aide Relationship Specialty Start Date End Date Mariaelena Wooten PA [address] [place] [address] PCP - General Adult Medicine 05/28/18
--- OUTSIDE RECORDS SUMMARY | 2024-09-09 23:43 | XMS_ITS | Patient Health Summary ---
Author Organization [facility] Address [address] [place] [address] Care Team Providers Care White Mixing Operator Name Role Phone Mariaelena Wooten Primary Care Provider [phone] Note from [facility][note 3],non-owned Affiliates and Associated Physician Practices is amultiple site organization consisting of ambulatory clinics and hospital sitesin [place], [place], [place] and [place]. This disclosure is being madepursuant to the Care Everywhere program and may not contain all information available regarding this patient. Last updated 18.[facility] Cavis microcaps Allergies No known active allergies Medications * [...] Comments Blood Pressure 122/84 09/30/2018 6:56 PM [facility] Pulse 105 09/30/2018 6:56 PM [facility] [employer] [facility] Temperature 37.7 ??C (99.8 ??F) 09/30/2018 6:56 PM CS T Respiratory Rate 18 09/30/2018 6:56 PM [facility] [employer] [facility] Oxygen Saturation - - Inhaled Oxygen Concentration - - Weight 71.7 kg (158 lb) 09/30/2018 6:56 PM [facility] Height 154.9 cm (5' 1 ) 09/30/2018 6:56 PM [facility] Body Mass Index 29.85 09/30/2018 6:56 PM [facility] Procedures * INFLUENZA A+B - POINT OF CARE (AMB)(Performed 09/30/2018) Performed for Influenza Results * (ABNORMAL) INFLUENZA A+B - POINT OF CARE (AMB) (09/30/2018 7:12 PM [facility] [employer] [facility]) Influenza A Antigen Rapid Positive(A) Negative Influenza B Antigen Rapid Negative Negative Influenza Internal Control Present NEGATIVE - POSITIVE Influenza Lot Number [id number] Influenza Expiration Date 04/09/20 Other NASOPHARYNGEAL SWAB / Unknown 09/30/2018 7:12 PM [facility] Irish Batista LEAD FABRICATOR-BARREL RIB MATTING MACHINE OPERATOR LAB - POINT OF CARE ORDERABLES Care Teams White Mixing Operator Relationship Specialty Start Date End Date Mariaelena Wooten PA [address] [place] [id number] PCP - General 09/30/18
--- OUTSIDE RECORDS SUMMARY | 2024-09-09 23:43 | XMS_ITS | Data Portability ---
Author Organization [facility] Jesse Address [address] [place] [address] Assessment Encounter Date Assessment Date Assessment LastModified [...] profile + non-stres s test 2024 025 [address], [address], [place], [address], 08/25/2024 21:13:44 non-stres s test 2024 025 [email or web address] Jesse[address], [address], [place], [address], 09/02/2024 09:09:04 US, obstetric , biophysic al profile + non-stres s test 2024 025 [email or web address] Jesse [facility] [address], [place], [address], 09/01/2024 20:17:34 Medication Orders None recorded. Patient [...] t Abnor mal: No Resul ting Lab: [facility] [address] [facility] [address] Tel: CULTU RE ----- ----- ----- --- No Group B strep isola israel at 2 days (servando ctive broth enhan cemen t) Not Available [facility] (Lab) [address] [facility], [place], [address], 08/28/2024 15:06:43 07/27/20 24 07/27/2024 non-s tress test No observ ation record ed. [email or web address], [place], [address], 07/27/2024 17:48:00 07/27/20 24 07/27/2024 US, obste tric, bioph ysica l profi le + non-s tress test No observ ation record ed. [email or web address] [address], [place], [address], 07/27/2024 18:00:12 07/27/20 24 07/27/2024 US, obste tric, bioph ysica l profi le + non-s tress test No observ ation record ed. [email or web address] [address], [place], [address], 07/27/2024 21:54:43 08/03/20 24 08/03/2024 US, obste tric, bioph ysica l profi le + non-s tress test No observ ation record ed. [email or web address] Jesse [address], [place], [address], 08/03/2024 17:58:44 08/03/20 24 08/03/2024 US, obste tric, bioph ysica l profi le + non-s tress test No observ ation record ed. [email or web address] [address] [facility], [place], [address], 08/03/2024 21:47:37 08/03/20 24 08/03/2024 non-s tress test No observ ation record ed. [email or web address] Jesse [address], [place], [address], 08/03/2024 18:53:24 08/03/20 24 08/03/2024 non-s tress test No observ ation record ed. [email or web address] Jesse [address], [place], [address], 08/03/2024 18:56:12 08/11/20 24 08/11/2024 non-s tress test No observ ation record ed. [email or web address] Jesse [address], [place], [address], 08/11/2024 14:39:28 08/11/20 24 08/11/2024 US, obste tric, follo w-up No observ ation record ed. [email or web address] Jesse [address], [place], [address], 08/11/2024 15:23:29 08/11/20 24 08/11/2024 US, obste tric, bioph ysica l profi le + non-s tress test No observ ation record ed. [email or web address] Jesse [address], [place], [address], 08/11/2024 15:23:42 08/11/20 24 08/11/2024 US, obste tric, follo w-up No observ ation record ed. [email or web address] [address], [place], [address], 08/11/2024 20:37:13 08/18/19 25 08/18/2024 US, obste tric, bioph ysica l profi le + non-s tress test No observ ation record ed. [email or web address] Jesse [address], [place], [address], 08/18/2024 18:23:18 08/18/19 25 08/18/2024 US, obste tric, bioph ysica l profi le + non-s tress test No observ ation record ed. [email or web address] [address], [place], [address], 08/18/2024 21:21:32 08/18/19 25 08/18/2024 non-s tress test No observ ation record ed. Jesse [address], [place], [address], 08/18/2024 17:49:04 08/25/19 25 08/25/2024 US, obste tric, bioph ysica l profi le + non-s tress test No observ ation record ed. [email or web address] Jesse [address], [place], [address], 08/25/2024 18:47:43 08/25/19 25 08/25/2024 US, obste tric, bioph ysica l profi le + non-s tress test No observ ation record ed. [email or web address] [address], [place], [address], 08/25/2024 21:21:25 08/25/19 25 08/25/2024 non-s tress test No observ ation record ed. Jesse [address], [place], [address], 08/25/2024 18:47:13 09/01/19 25 09/01/2024 US, obste tric, bioph ysica l profi le + non-s tress test No observ ation record ed. [email or web address] Jesse [address], [place], [address], 09/01/2024 18:32:00 09/01/19 25 09/01/2024 US, obste tric, follo w-up No observ ation record ed. [email or web address] [address], [place], [address], 09/01/2024 22:10:28 09/01/19 25 09/01/2024 non-s tress test No observ ation record ed. [email or web address] Jesse [address], [place], [address], 09/01/2024 17:00:44 Result Notes None recorded. Problems Name Problem SNOMED Code Status Onset Date Resolution Date Notes Provider Name and Address Organization Details Recorded Time 12518604 Active 2023 Tracie resendiz, [facility] 4 15:35:01 Shoulder girdle dystocia 33722847 Active 9 lb 2 oz infant, possible injury, to do primary Gabino Swann MD [address], [place], [address], [facility] 4 18:21:13 RhD negative 972176984 Active rhogam @28wks - 07/04/24 received Chay Mac [facility], [facility] 4 11:16:57 RhD negative 114328390 Active rhogam @28wks - 07/04/24 received Chay resendiz, [facility] 4 11:16:57 Chronic hypertens ion in obstetric context 5965809 Active 32wk testing - baseline PIH labs & PCR done at [facility] 04/08/24. ALT mildly elevated (46), otherwise WNL. Labetalol 100 bid antental testing wkly 32wks 38wk delivery Clementina High [facility], [facility] 4 15:48:13 Advanced maternal age 800654908 Active 36 WK TESTING Sylviabry Mac [facility] 4 10:11:15 Advanced maternal age 319387987 Active 36 WK TESTING Sylviabry Mac [facility] 4 10:11:15 Problem Notes None recorded. Procedures Surgical History Date Name Laterality Status Provider Name and Address Organization Details Recorded Time 5 SECTION (SURG) completed Tracie Brizuela [facility] 09/07/2024 10:23:05 2 Date of Last Pap Smear completed [facility] 02/22/2024 15:47:00 9 Breast Implants completed [facility] 02/22/2024 15:54:27 0 LEEP completed [facility] 02/22/2024 15:46:30 7 termination of completed [facility] 02/22/2024 15:54:42 Imaging Results Imaging Date Name Status [facility]Modified by [facility] Details LastModified Time 07/27/2024 non-stress test completed [email or web address] Jesse [address], [place], [address], 07/27/2024 17:48:00 07/27/2024 US, obstetric, biophysical profile + non-stress test completed [email or web address] Jesse [address], [place], [address], 07/27/2024 18:00:12 07/27/2024 US, obstetric, biophysical profile + non-stress test completed [email or web address] [address], [place], [address], 07/27/2024 21:54:43 08/03/2024 US, obstetric, biophysical profile + non-stress test completed [email or web address] Jesse [address], [place], [address], 08/03/2024 17:58:44 08/03/2024 US, obstetric, biophysical profile + non-stress test completed [email or web address] [address], [place], [address], 08/03/2024 21:47:37 08/03/2024 non-stress test completed [email or web address], [place], [address], 08/03/2024 18:53:24 08/03/2024 non-stress test completed [email or web address], [place], [address], 08/03/2024 18:56:12 08/11/2024 non-stress test completed [email or web address], [place], [address], 08/11/2024 14:39:28 08/11/2024 US, obstetric, follow-up completed [email or web address], [place], [address], 08/11/2024 15:23:29 08/11/2024 US, obstetric, biophysical profile + non-stress test completed [address], [place], [address], 08/11/2024 15:23:42 08/11/2024 US, obstetric, follow-up completed [email or web address] [address], [place], [address], 08/11/2024 20:37:13 08/18/2024 US, obstetric, biophysical profile + non-stress test completed [address], [place], [address], 08/18/2024 18:23:18 08/18/2024 US, obstetric, biophysical profile + non-stress test completed [email or web address] [address], [place], [address], 08/18/2024 21:21:32 08/18/2024 non-stress test active [address], [place], [address], 08/18/2024 17:49:04 08/25/2024 US, obstetric, biophysical profile + non-stress test [email or web address] [address], [place], [address], 08/25/2024 18:47:43 08/25/2024 US, obstetric, biophysical profile + non-stress test completed [email or web address] [address], [place], [address], 08/25/2024 21:21:25 08/25/2024 non-stress test active [email or web address] [place] [address] [address], [place], [address], 08/25/2024 18:47:13 09/01/2024 US, obstetric, biophysical profile + non-stress test completed [facility] [address], [place], [address], 09/01/2024 18:32:00 09/01/2024 US, obstetric, follow-up completed Joh[address], [place], [address], 09/01/2024 22:10:28 09/01/2024 non-stress test completed [address], [place], [address], 09/01/2024 17:00:44 Procedure Notes None recorded. Medical [...] and Address Organization Details Last Updated DateTime 135450. 74348 g 154.94 cm 42.7 kg/m2 028060. 88 g 158 mm[Hg] 90 mm[Hg] 158 mm[Hg] 90 mm[Hg] Norah Chahal [facility] 18:46:11 Date Recorded Body weight Systolic blood pressure Diastolic blood pressure Provider Name and Address Organization Details Last Updated DateTime 09/01/2024 006470.429 84 g 143 mm[Hg] 85 mm[Hg] Norah Chahal [facility] 09/01/2024 16:07:51 Date Recorded Body height Provider Name an d Address Organization Details Last Updated DateTime 09/01/2024 154.94 cm Tracie Brizuela [facility] 09/01/2024 16:59:26 Social History Question Answer Notes LastModified by Organizat ion Details LastModified Time Tobacco Smoking Status Current Every Day Smoker Norah Chahal [facility], [facility] 02/22/2024 15:53:16 Do You Have An [...] Or The Highest Degree You Have Received? 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 [id number] Information not available 02/22/2024 Do You Use [...] SNOMED-CT Code Diagnosis ICD10 Code Diagnosis Note [id number] Brittany Miller Jesse [address] [address] 02/22/2024 14:53:10 02/22/2024 15:25:48 [id number] Gabino Swann MD Jesse [address],[place] [address] 02/22/2024 14:53:24 02/22/2024 16:45:45 Amenorrhea 28498393 N91.2 this patient is a 38-year-ol d [...] 2 oz baby [id number] Gabino Swann MD Jesse [address],[place] [address] 03/11/2024 14:55:10 03/12/2024 10:00:08 Routine care 924821367 Z34.90 screening 2437 04185 Z36.82 Z3A.12 [id number] [facility] [address],[place] [address] 03/11/2024 14:55:53 03/11/2024 16:36:37 screening 447507850 Z36.82 Z3A.12 [id number] Gabino Swann MD Jesse [address],[place] [address] 04/08/2024 15:49:05 04/08/2024 16:50:28 Chronic hypertension in obstetric context 1849350 O16.9 [id number] Gabino Swann MD Jesse [address],[place] [address] 04/15/2024 15:12:16 04/15/2024 16:13:47 Routine care 189414066 Z34.[id number] [facility] [address],[place] [address] 05/05/2024 16:33:53 05/05/2024 17:52:27 screening for malformation 662623844 Z36.3 Z3A.20 [id number] Gabino Swann MD Jesse [address],[place] [address] 05/05/2024 16:35:09 05/06/2024 09:59:52 Routine care 114451056 Z34.90 [id number] [facility] [address],[place] [address] 06/06/2024 16:53:05 06/06/2024 17:35:37 screening 727600095 Z36.2 Z3A.24 [id number] Gabino Swann MD Jesse [address],[place] [address] 06/06/2024 16:53:36 06/06/2024 17:57:30 Routine care 150692924 Z34.90 [id number] Gabino Swann MD Jesse [address],[place] [address] 07/04/2024 17:08:50 07/05/2024 02:44:56 Chronic hypertension complicating AND/OR reason for care during 61270109 O16.9 Routine an tenatal care 784428501 Z34.[id number] [facility] [address],[place] [address] 07/18/2024 16:54:55 07/18/2024 22:53:25 Chronic hypertension complicating AND/OR reason for care during 18113480 O10.013 O09.523 Z3A.30 [id number] Gabino Swann MD Jesse [address],[place] [address] 07/18/2024 16:55:14 07/18/2024 22:54:38 Routine care 678278727 Z34.90 [id number] [facility] [address],[place] [address] 07/27/2024 17:01:24 07/27/2024 17:38:19 86832642 Z33.1 Chronic hy pertension complicating AND/OR reason for care during 31973694 O10.013 O09.523 Z3A.32 [id number] Kristina Lucy Jesse [address],[place] [address] 07/27/2024 17:01:48 07/27/2024 17:59:26 Chronic hypertension complicating AND/OR reason for care during 20454279 O10.013 O09.523 Z3A.32 [id number] Gabino Swann MD Jesse [address],[place] [address] 07/27/2024 17:02:18 07/28/2024 09:50:02 Routine care 294669546 Z34.90 [id number] Domenica Malik Jesse [address],[place] [address] 08/03/2024 16:59:55 08/04/2024 10:57:32 Chronic hypertension complicating AND/OR reason for care during 33356525 O16.9 [id number] Brittany Miller Jesse [address],[place] [address] 08/03/2024 17:00:15 08/04/2024 06:35:25 Chronic hypertension in obstetric context 8373040 O10.013 O09.523 Z3A.33 [id number] Gabino Swann MD Jesse [address],[place] [address] 08/03/2024 17:00:35 08/04/2024 06:38:20 Routine care 468498481 Z34.90 [id number] Tracie Brizuela Jesse [address],[place] [address] 08/11/2024 14:04:45 08/11/2024 15:08:56 Chronic hypertension complicating AND/OR reason for care during 79946864 O16.[id number] [facility] [address],[place] [address] 08/11/2024 14:05:09 08/11/2024 15:17:40 Chronic hypertension complicating AND/OR reason for care during 77951016 O10.013 O09.523 Z3A.34 [id number] Gabino Swann MD Jesse [address],[place] [address] 08/11/2024 14:05:21 08/11/2024 15:56:28 Obstructed labor due to shoulder dystocia 271262825 O66.0 [id number] Kristina [facility] [address],[place] [address] 08/18/2024 13:35:08 08/18/2024 14:11:40 Advanced maternal age 514457771 O09.523 O16.3 O99.210 Z3A.35 [id number] Norah [facility] [address],[place] [address] 08/18/2024 13:35:24 08/18/2024 22:45:22 Chronic hypertension complicating AND/OR reason for care during 98550225 O16.9 [id number] Gabino Swann MD Jesse [address],[place] [address] 08/18/2024 13:35:36 08/18/2024 15:32:19 Routine care 433434505 Z34.90 Obstructed labor due to shoulder dystocia 393845855 O66.[id number] [facility] [address],[place] [address] 08/25/2024 14:21:16 08/25/2024 15:14:06 Chronic hypertension complicating AND/OR reason for care during 00068197 O10.013 O09.523 Z3A.36 [id number] Norah [facility] [address],[place] [address] 08/25/2024 14:21:31 08/26/2024 14:25:21 Chronic hypertension complicating AND/OR reason for care during 14183686 O16.9 [id number] Gabino Swann MD Jesse [address],[place] [address] 08/25/2024 14:22:03 08/25/2024 16:36:59 Routine care 417432363 Z34.90 [id number] Brittany Miller Jesse [address],[place] [address] 09/01/2024 14:40:13 09/01/2024 15:12:45 Chronic hypertension complicating AND/OR reason for care during 83139460 O10.013 O09.523 Z3A.37 [id number] Tracie Gelacio Jesse [address],[place] [address] 09/01/2024 14:40:30 09/01/2024 17:14:57 Chronic hypertension complicating AND/OR reason for care during 03732872 O10.013 O09.523 Z3A.37 [id number] Gabino Swann MD Jesse [address],[place] [address] 09/01/2024 14:40:53 09/01/2024 17:05:52 Routine care 924583436 Z34.90 [id number] Gabino Swann MD Jesse [address],[place] [address] 09/07/2024 10:27:45 09/07/2024 16:15:05 Health Concerns Section Related Observation LastModified by Organization Detai ls LastModified Time None Recorded Concern Status LastModified by Organization Details LastModified Time None Recorded Advance Directives Directive N: Payers Encounter Date Sequence Insurance Name Policy Number Policy Painting Covered Member ID Painting Member ID Guarantor Name 08/25/2024 1 [facility] [id number] Jessika Neri [id number] Jessika Neri 09/01/2024 1 [employer] [id number] Jessika Neri [id number] Jessika Neri 09/01/2024 1 [employer] [employer] [id number] Jessika Neri [id number] Jessika Neri 09/01/2024 1 [employer] [employer] [id number] Jessika Daron [id number] Jessika Daron 09/07/2024 1 [facility] [employer] [id number] Jessika Daron [id number] Jessika Neri OBGyn Episode Ob Episode Information Episode Created Date Number of Fetuses Patient Bloodtype Patient rh Status Prepregnancy Weight lbs Domestic Partner Domestic Partner Phone Father Name Surveillance Systems Engineer Status 02/22/20 1 CLOSED Fetus Data First Name Last Name Admitted to NICU Weight (g) Sex Living Outcome Pediatric Complications Fetus ID Race Codes Race Delivery Type , Induced 69571 Rico Calculation Initial Rico Date Initial Exam Date Initial Exam Provider Initial Ultrasound Date Last Menstrual Period Date Ultra Sound Weeks Gestation 0 Eighteen To Twenty Week Rico Update Ultra Sound Date Fundal Height At Umbil Quickening Date Ultra Sound Latest Weeks Gestation Final Rioc Confirmed By Final Rico Confirmed Date Final [...] Domestic Partner Domestic Partner Phone Father Name Surveillance Systems Engineer Status 03/11/20 1 O Negative Breezy Pr[address] rd OPEN Fetus Data First Name Last Name Admitted to NICU Weight (g) Sex Living Outcome Pediatric Complications Fetus ID Race Codes Race Delivery Type [id number] Problems Problem Notes Problem Name Start Date End Date Resolution Snomed Code Not e Advanced maternal age 687368983 36 WK TESTING Chronic hypertension in obstetric context 3442788 32wk anten atal testing - baseline PIH labs & PCR done at [facility] 04/08/24. ALT mildly elevated (46), otherwise WNL. Labetalol 100 bid antental testing wkly 32wks 38wk delivery RhD negative 362170728 rhogam @28wks - 07/04/24 received Shoulder girdle dystocia 20090825 9 lb 2 oz infan t, possible [...] Weight in lbs Pre/Post Dialysis Refused Weight 180.033539235444 BP Diastolic BP Location Tested BP Systolic [...] Type Weight in lbs Pre/Post Dialysis Refused 189.844089436080 BP Diastolic BP Location Tested BP Systolic [...] Type Weight in lbs Pre/Post Dialysis Refused 189.554383235466 BP Diastolic BP Location Tested BP Systolic [...] Type Weight in lbs Pre/Post Dialysis Refused 198.103125183172 BP Diastolic BP Location Tested BP Systolic [...] Type Weight in lbs Pre/Post Dialysis Refused 202.703402695553 BP Diastolic BP Location Tested BP Systolic [...] Type Weight in lbs Pre/Post Dialysis Refused 214.174905865254 BP Diastolic BP Location Tested BP Systolic [...] Type Weight in lbs Pre/Post Dialysis Refused 221.506552403801 BP Diastolic BP Location Tested BP Systolic [...] in lbs Pre/Post Dialysis Refused With clothes 221.732609592145 BP Diastolic BP Location Tested BP Systolic [...] Weight in lbs Pre/Post Dialysis Refused Weight 222.1064283435 BP Diastolic BP Location Tested BP Systolic [...] Type Weight in lbs Pre/Post Dialysis Refused 222.61964327033 BP Diastolic BP Location Tested BP Systolic [...] Type Weight in lbs Pre/Post Dialysis Refused 226.490470293448 BP Diastolic BP Location Tested BP Systolic [...] Weight in lbs Pre/Post Dialysis Refused Weight 226.122456982214 BP Diastolic BP Location Tested BP Systolic BP Type 74 L arm 131 sitting Fetus Heart Rate Present Fetus Movement Comments Flowsheet Date 08/18/2024 Lozano Score Blood Edema Fundus Height Fundus Units Glucose Ketones Leukocytes Nitrite Labor Signs Protein Cervic Dilation Cervic Effacement Cervic Station Type Weight in lbs Pre/Post Dialysis Refused 226.828319019505 BP Diastolic BP Location Tested BP Systolic [...] Weight in lbs Pre/Post Dialysis Refused Weight 226.035414593638 BP Diastolic BP Location Tested BP Systolic BP Type 90 L arm 158 sitting Fetus Heart Rate Present Fetus Movement Comments Flowsheet Date 08/25/2024 Lozano Score Blood Edema Fundus Height Fundus Units Glucose Ketones Leukocytes Nitrite Labor Signs Protein Cervic Dilation Cervic Effacement Cervic Station Type Weight in lbs Pre/Post Dialysis Refused 226.327214901831 BP Diastolic BP Location Tested BP Systolic [...] Type Weight in lbs Pre/Post Dialysis Refused 232.48412688304 BP Diastolic BP Location Tested BP Systolic [...] Domestic Partner Domestic Partner Phone Father Name Surveillance Systems Engineer Status 02/22/20 24 1 CLOSED Fetus Data First Name Last Name Admitted to NICU Weight (g) Sex Living Outcome Pediatric Complications Fetus ID Race Codes Race Delivery Type 4139.02 7 M Full Term 44029 Vaginal Delivery Rico Calculation Initial Rico Date [...] Domestic Partner Domestic Partner Phone Father Name Surveillance Systems Engineer Status 02/22/20 24 1 CLOSED Fetus Data First Name Last Name Admitted to NICU Weight (g) Sex Living Outcome Pediatric Complications Fetus ID Race Codes Race Delivery Type , Spontane ous 97263 Rico Calculation Initial Rico Date Initial Exam [...]
--- OUTSIDE RECORDS SUMMARY | 2024-09-09 23:43 | XMS_ITS | Clinical Summary ---
Author Organization [facility] Address [address] [place] [address] Care Team Providers Care Census Clerk Name Role Phone Mariaelena Wooten Primary Care Provider [phone] Source Comments [facility],non-owned Affiliates and Associated Physician Practices is amultiple site organization consisting of ambulatory clinics and hospital sitesin [place], [place], [place] and [place]. This disclosure is being madepursuant to the Care Everywhere program and may not contain all information available regarding this patient. Last updated 18.[facility] Allergies No known active allergies Medications * [...] Comments Blood Pressure 122/84 09/30/2018 6:56 PM STAGECRAFT PROFESSOR Pulse 105 09/30/2018 6:56 PM STAGECRAFT PROFESSOR Temperature 37.7 ??C (99.8 ??F) 09/30/2018 6:56 PM CS T Respiratory Rate 18 09/30/2018 6:56 PM STAGECRAFT PROFESSOR Oxygen Saturation - - Inhaled Oxygen Concentration - - Weight 71.7 kg (158 lb) 09/30/2018 6:56 PM STAGECRAFT PROFESSOR Height 154.9 cm (5' 1 ) 09/30/2018 6:56 PM STAGECRAFT PROFESSOR Body Mass Index 29.85 09/30/2018 6:56 PM STAGECRAFT PROFESSOR Plan of Treatment Health Maintenance Due Date [...] age to complete this topic Care Teams Census Clerk Relationship Specialty Start Date End Date Mariaelena Wooten PA [address] [place] [address] PCP - General 09/30/18
--- OUTSIDE RECORDS SUMMARY | 2024-09-09 23:43 | XMS_ITS | Referral Summary ---
Author Organization [facility] Address [address] [place] [address] Care Team Providers Care Field Crew Chief Name Role Phone Mariaelena Wooten Primary Care Provider [phone] Source Comments [facility],non-owned Affiliates and Associated Physician Practices is amultiple site organization consisting of ambulatory clinics and hospital sitesin [place], [place], [place] and [place]. This disclosure is being madepursuant to the Care Everywhere program and may not contain all information available regarding this patient. Last updated 18.[facility] Allergies No known active allergies Medications * [...] Comments Blood Pressure 122/84 09/30/2018 6:56 PM CLINICAL ACCOUNT EXECUTIVE Pulse 105 09/30/2018 6:56 PM CLINICAL ACCOUNT EXECUTIVE Temperature 37.7 ??C (99.8 ??F) 09/30/2018 6:56 PM CS T Respiratory Rate 18 09/30/2018 6:56 PM CLINICAL ACCOUNT EXECUTIVE Oxygen Saturation - - Inhaled Oxygen Concentration - - Weight 71.7 kg (158 lb) 09/30/2018 6:56 PM CLINICAL ACCOUNT EXECUTIVE Height 154.9 cm (5' 1 ) 09/30/2018 6:56 PM CLINICAL ACCOUNT EXECUTIVE Body Mass Index 29.85 09/30/2018 6:56 PM CLINICAL ACCOUNT EXECUTIVE Plan of Treatment Not on file Care Teams Field Crew Chief Relationship Specialty Start Date End Date Mariaelena Wooten PA [address] [place] [id number] PCP - General 09/30/18
[2024-09-09 23:52] VITALS: PULSE 87; O2SAT 99
[2024-09-09 23:53] VITALS: BP 159/85; PULSE 102
[2024-09-09 23:55] VITALS: BP 167/96; PULSE 100
[2024-09-09 23:57] VITALS: PULSE 98; O2SAT 99
[2024-09-10] VITALS (23 sets, daily range): BP systolic 137–165; BP diastolic 71–108; PULSE 80–106; TEMP 36.6–36.8; O2SAT 93–99; BMI 43.7
--- NOTE | 2024-09-10 00:28 | PC.NURSE ---
Pt here with c/o high bp @ home. Pt stated BP was 180's/100s, Pt took labatol PO 100 or 200 mg as she left she is unsure how much she took. Pt delivered via on 09/07/24. Pt has CHTN. No other issues through . Pt c/o red tender area on her stomach. Red area around belly button, pt stated it is tender, skin is slightly warmer on red area compared to other areas of abd. incision area open to air, no reddness or swelling noted.
[2024-09-10 00:30] LABS: Add Urine Microscopic? NO; Appearance Urine Clear (Clear); Bilirubin Urine Negative (Negative); Blood Urine Negative (Negative); Color Urine Yellow (Yellow); Glucose Urine UA Negative (Negative); Ketones Urine Negative (Negative); Leukocyte Esterase Ur Negative LEU/UL (Negative); Nitrate Urine Negative (Negative); Protein Urine Negative (Negative); Specific Grav Ur 1.014 (1.001-1.035); Urobilinogen Urine 0.2 mg/dL (<2.0)
[2024-09-10 00:35] LABS: Basophils Percent Auto 0.4 % (0.2-1.2); Eosinophils Absolute Auto 0.2 K/mm3 (0-0.3); Eosinophils Percent Auto 1.9 % (0-4.4); Hemoglobin 10.2 g/dL (12.0-15.0); Immature Granulocyte Absolute 0.26 K/mm3 (0.00-0.031); Immature Granulocyte Percent A 2.4 % (0-0.5); Lymphocytes Absolute Auto 1.91 K/mm3 (0.9-3.2); Lymphocytes Percent Auto 17.5 % (18.3-44.2); Mean Corpuscular HGB Conc 31.9 g/dl (32-36); Mean Corpuscular Hemoglobin 29.5 pg (26-34); Mean Corpuscular Volume 92.5 fl (80-100); Monocytes Absolute Auto 1.3 K/mm3 (0.1-0.6); Monocytes Percent Auto 11.8 % (2.6-8.5); Neutrophils Absolute Auto 7.2 K/mm3 (1.3-6.7); Nucleated Red Blood Cells Perc 0.2 % (0.0-0.2); Platelet Count Result 196 k/mm3 (150-375); Red Blood Count 3.46 M/mm3 (4.2-5.4); Red Cell Distribution Width 16.3 % (11.5-14.5); White Blood Count 10.9 K/mm3 (4.5-10.0)
[2024-09-10 00:36] LABS: Creatinine Urine 95.2 mg/dL; Total Protein Urine Random 14 mg/dL; Ur Ttl Prot Creatinine Ratio 0.15 mg/mg (0-0.20)
[2024-09-10 00:41] LABS: Alanine Aminotransferase 28 U/L (6-35); Albumin Level 3.1 g/dL (3.5-5.1); Alkaline Phosphatase 152 U/L (38-126); Anion Gap 8 mmol/L (4-12); Aspartate Amino Transferase 36 U/L (14-36); Bilirubin,Total 0.3 mg/dL (0.2-1.3); Blood Urea Nitrogen 7 mg/dL (7-17); Calcium 8.9 mg/dL (8.4-10.2); Carbon Dioxide 23 mmol/L (22-30); Chloride 106 mmol/L (98-107); Estimated Glomerular Filt Rate > 60; Glucose 123 mg/dL (65-110); Potassium 3.6 mmol/L (3.4-5.0); Sodium 137 mmol/L (137-145); Uric Acid 5.4 mg/dL (2.5-7.5)
--- NOTE | 2024-09-10 01:06 | PC.NURSE ---
Call placed to Dr. Swann pt c/o high bp @ home, red drake on abd, vitals and labs reported. Reported pt taking normal labatol 200 mg @ 2100 and panicked and took a second dose (100 or 200 mg) she was unsure . Order to monitor pt overnight, BP checks q1hr, other vitals q4hr, pt can have tylenol 650 mg q4hr, IBU 600 mg q6hr, or hydrocodone-acetaminophen 5 PRN q4 for pain.
--- OUTSIDE RECORDS SUMMARY | 2024-09-10 01:54 | XMS_ITS | Referral Summary ---
Author Organization [facility] Address [address] [place] [address] Care Team Providers Care Engineer Third Assistant Name Role Phone Mariaelena Wooten Primary Care Provider [phone] Source Comments [facility],non-owned Affiliates and Associated Physician Practices is amultiple site organization consisting of ambulatory clinics and hospital sitesin [place], [place], [place] and [place]. This disclosure is being madepursuant to the Care Everywhere program and may not contain all information available regarding this patient. Last updated 18.[facility] Allergies No known active allergies Medications * [...] Comments Blood Pressure 122/84 09/30/2018 6:56 PM PLANNING MANAGEMENT IT SPECIALIST Pulse 105 09/30/2018 6:56 PM PLANNING MANAGEMENT IT SPECIALIST Temperature 37.7 ??C (99.8 ??F) 09/30/2018 6:56 PM CS T Respiratory Rate 18 09/30/2018 6:56 PM PLANNING MANAGEMENT IT SPECIALIST Oxygen Saturation - - Inhaled Oxygen Concentration - - Weight 71.7 kg (158 lb) 09/30/2018 6:56 PM PLANNING MANAGEMENT IT SPECIALIST Height 154.9 cm (5' 1 ) 09/30/2018 6:56 PM PLANNING MANAGEMENT IT SPECIALIST Body Mass Index 29.85 09/30/2018 6:56 PM PLANNING MANAGEMENT IT SPECIALIST Plan of Treatment Not on file Care Teams Engineer Third Assistant Relationship Specialty Start Date End Date Mariaelena Wooten PA [address] [place] [phone] PCP - General 09/30/18
--- OUTSIDE RECORDS SUMMARY | 2024-09-10 01:54 | XMS_ITS | Patient Health Summary ---
Author Organization [facility] Address [address] [place] [address] Care Team Providers Care Family Practice Nurse Practitioner Name Role Phone Mariaelena Wooten Primary Care Provider [phone] [facility] from [facility],non-owned Affiliates and Associated Physician Practices is amultiple site organization consisting of ambulatory clinics and hospital sitesin [place], [place] and [place]. This disclosure is being madepursuant to the Care Everywhere program and may not contain all information available regarding this patient. Last updated 18.[facility] [employer] [facility] Allergies No known active allergies Medications [...] Comments Blood Pressure 122/84 09/30/2018 6:56 PM MUSEUM GUIDE Pulse 105 09/30/2018 6:56 PM MUSEUM GUIDE Temperature 37.7 ??C (99.8 ??F) 09/30/2018 6:56 PM CS T Respiratory Rate 18 09/30/2018 6:56 PM MUSEUM GUIDE Oxygen Saturation - - Inhaled Oxygen Concentration - - Weight 71.7 kg (158 lb) 09/30/2018 6:56 PM MUSEUM GUIDE Height 154.9 cm (5' 1 ) 09/30/2018 6:56 PM MUSEUM GUIDE Body Mass Index 29.85 09/30/2018 6:56 PM MUSEUM GUIDE Procedures * INFLUENZA A+B - POINT OF CARE (AMB)(Performed 09/30/2018) Performed for Influenza Results * (ABNORMAL) INFLUENZA A+B - POINT OF CARE (AMB) (09/30/2018 7:12 PM MUSEUM GUIDE) Influenza A Antigen Rapid Positive(A) Negative Influenza B Antigen Rapid Negative Negative Influenza Internal Control Present NEGATIVE - POSITIVE Influenza Lot Number [id number] Influenza Expiration Date 04/09/20 Other NASOPHARYNGEAL SWAB / Unknown 09/30/2018 7:12 PM MUSEUM GUIDE Irish Batista WATER RESOURCE CONSULTANT-SILL WORKER LAB - POINT OF CARE ORDERABLES Care Teams Family Practice Nurse Practitioner Relationship Specialty Start Date End Date Mariaelena Wooten PA [address] [place] [id number] PCP - General 09/30/18
--- OUTSIDE RECORDS SUMMARY | 2024-09-10 01:54 | XMS_ITS | Clinical Summary ---
Author Organization [facility] Address [address] [place] [address] Phone Care Team Providers Care Assembler Clip On Sunglasses Name Role Phone Mariaelena Wooten Primary Care Provider [phone] Allergies No known active allergies Medications No [...] Priority Date/Time Associated Diagnosis Comments PATHOLOGY CYTOLOGY DEVELOPER ARCHITECT Routine 09/15/2017 9:25 AM CHEMICAL UNIT OPERATOR Encounter for well woman exam with routine gynecological exam from Last 3 Months or Most Recently Relevant to Health Maintenance Results * PATHOLOGY CYTOLOGY DEVELOPER ARCHITECT (09/15/2017 9:25 AM CHEMICAL UNIT OPERATOR) SPECIMEN ADEQUACY Satisfactory for evaluation. Endocervical cells present. 09/24/2017 11:57 AM [facility] DESCRIPTIVE DIAGNOSIS Negative for intraepithelial lesions. No dysplastic cells present. 09/24/2017 11:57 AM [facility] MATED EXAMINATION Analysis of this sample has been assisted by an automated imaging and review system (ACE Portalprep Imaging System, [employer], [place], [place]). This case is further evaluated and finalized by a retail department reset and/or pathologist. 09/24/2017 11:57 AM [facility] DISCLAIMER The PAP smear is a screening [...] 67 unless clinically indicated. 09/24/2017 11:57 AM CHEMICAL UNIT OPERATOR [facility] Case Report Gynecologic Cytology Report ? Case: [id number] ? Authorizing Provider: ??Lance Ramírez MD ?Collected: ? 09/15/2017 09:25 AM ? Ordering Location: ? [facility] ? Received: ?09/15/2017 09:26 AM ? GROUP - OBSTETRICS AND ? GYNECOLOGY - [facility] ? First Screen: ?Spaniol, Bibi M ? Specimen: ?Cervical/Endocerv ical, liquid based thin layer preparation (Thin Prep??), ? CERVIX/ENDOCERVIX ? 09/24/2017 11:57 AM CHEMICAL UNIT OPERATOR [facility] HPV Reflex if ASCUS? Yes 09/24/2017 11:57 AM CHEMICAL UNIT OPERATOR [facility] Specimen of unknown material (specimen) (Cervix/Endocerv ix) 09/15/2017 9:25 AM CHEMICAL UNIT OPERATOR 09/15/2017 9:26 AM CHEMICAL UNIT OPERATOR us Lance Ramírez MD PATHOLOGY/CYTOLOGY ORDERABLES Final Result [facility] [address] [place] [address], from Last 3 Months or Most Recently Relevant to Health Maintenance Care Teams Assembler Clip On Sunglasses Relationship Specialty Start Date End Date Mariaelena Wooten PA [address] [place] [address] PCP - General Adult Medicine 05/28/18
--- OUTSIDE RECORDS SUMMARY | 2024-09-10 01:54 | XMS_ITS | Clinical Summary ---
Author Organization [facility] [employer] Address [address] [place] [address] Care Team Providers Care Wool Presser Name Role Phone Mariaelena Wooten Primary Care Provider [phone] Source Comments [facility],non-owned Affiliates and Associated Physician Practices is amultiple site organization consisting of ambulatory clinics and hospital sitesin [place], [place], [place] and [place]. This disclosure is being madepursuant to the Care Everywhere program and may not contain all information available regarding this patient. Last updated 18.[facility] [employer] Allergies No known active allergies Medications * [...] Comments Blood Pressure 122/84 09/30/2018 6:56 PM LOCATION ANALYST Pulse 105 09/30/2018 6:56 PM LOCATION ANALYST Temperature 37.7 ??C (99.8 ??F) 09/30/2018 6:56 PM CS T Respiratory Rate 18 09/30/2018 6:56 PM LOCATION ANALYST Oxygen Saturation - - Inhaled Oxygen Concentration - - Weight 71.7 kg (158 lb) 09/30/2018 6:56 PM LOCATION ANALYST Height 154.9 cm (5' 1 ) 09/30/2018 6:56 PM LOCATION ANALYST Body Mass Index 29.85 09/30/2018 6:56 PM LOCATION ANALYST Plan of Treatment Health Maintenance Due Date [...] age to complete this topic Care Teams Wool Presser Relationship Specialty Start Date End Date Mariaelena Wooten PA [address] [place] [phone] PCP - General 09/30/18
--- NOTE | 2024-09-10 01:55 | OBADM ---
This patient, Jessika Neri, admitted to the OB room OB Post 116 for observation. Patient/family oriented to hospital policies and general routines including ID bracelet, bed and alarms, visiting hours, pain management, procedures, bathroom and other care routines, personal items, smoking policy, room service/diet, and visiting hours. Patient/Family are encouraged to report perceived risks to care and to ask questions if they do not understand what they are told or what they should do.
--- NOTE | 2024-09-10 06:23 | PC.NURSE ---
In to assess pt. Pt is tearful, states she hasn't slept all night. States she just wants to be in her own bed but she is waiting to be examined by Dr. Swann. Explained it may be awhile before Dr. Swann is in to see pt. Pt states she panicked when she got home and saw the red spot on her abdomen, she then took her blood pressure. She stated she hasn't slept since she was admitted and she only slept for 3 hours the night before delivery. Pt declined ever being on anxiety medication and doesn't want to be on medication. Discussed therapy and having tools to work through anxiety. Pt appears frustrated and exhausted. She continued to state she just needs to get in her own bed and she won't be able to sleep here. BP cuff removed, pt states she continues to worry about that and has to mess with it and it just keeps her awake too.
[2024-09-10] MEDS: ACETAMINOPHEN 325 MG TABLET 650 MG PO (08:11)
[2024-09-10] MEDS: IBUPROFEN 600 MG TABLET PO (08:12)
[2024-09-10] MEDS: LABETALOL HCL 100 MG TABLET 200 MG PO (08:12)
--- NOTE | 2024-09-10 08:39 | PM.IMHP ---
H&P: HPI History of Present Illness Date/Time: 09/10/24 08:39 Chief Complaint: elevated blood pressure Narrative: this patient is a 39-year-old female who presents for blood pressure concerns. She was measuring blood pressures at home that were in the severe range. She denied any headache, blurry vision, epigastric pain. She denies any worsening of her swelling. She does have concerns about her surgical incision from the delivery. There is a warm and red area the skin above the incision site. We are working on controlling her blood pressures. Changing her blood pressure medication. Increasing her labetalol in adding nifedipine. To start antibiotics to try to prevent a abscess of the incision site. We will observe patient and obtain labs for preeclampsia. Review of Systems Review of Systems: All systems reviewed & are unremarkable except as noted in HPI and below Constitutional: Constitutional: Denies chills, Denies fatigue, Denies fever(s) and Denies weakness Eyes: Eyes: Denies blurry vision, Denies change in vision, Denies loss of peripheral vision, Denies loss of vision, Denies other visual disturbances and Denies eye pain ENT: Denies vertigo, Denies dizziness, Denies hearing loss, Denies mouth pain, Denies nasal obstruction, Denies neck mass and Denies neck pain Cardiovascular: Cardiovascular: Denies chest pain, Denies diaphoresis, Denies syncope, Denies leg edema and Denies dyspnea Respiratory: Respiratory: Denies chest congestion, Denies cough, Denies hemoptysis, Denies dyspnea and Denies wheezing Gastrointestinal: Gastrointestinal: Denies abdominal pain, Denies constipation, Denies diarrhea, Denies nausea and Denies vomiting Genitourinary: Genitourinary: Denies hematuria, Denies change in libido, Denies nocturia, Denies genital lesions, Denies flank pain and Denies urinary urgency Musculoskeletal: Musculoskeletal: Denies abnormal gait, Denies back pain, Denies myalgias, Denies arthralgias, Denies joint swelling, Denies muscle weakness and Denies neck pain Integumentary/Breasts: Skin/Breast: Denies swelling, Denies breast pain, Denies breast mass, Denies dry skin, Denies nipple discharge, Denies unusual bruising and Denies jaundice Neurologic: Denies Neuro-related abnormal movements, Denies Abnormal speech present, Denies abnormal gait, Denies behavioral changes, Denies confusion, Denies vertigo, Denies dizziness, Denies syncope, Denies loss of vision, Denies memory loss, Denies convulsions and Denies weakness Psychiatric: Psychiatric: Denies abnormal sleep pattern, Denies behavioral changes, Denies change in libido, Denies confusion, Denies depression, Denies anhedonia and Denies memory loss Endocrine: Endocrine: Reports no additional endocrine complaints, Denies change in libido and Denies fatigue Hematologic/Lymphatic: Hematologic/Lymphatic: Reports no additional hematologic/lymphatic complaints Allergic/Immunologic: Allergic/Immunologic: Reports no additional allergic/immunologic complaints and Denies wheezing [facility] Family History Family History Other Hypertension Social History Social History Smoking status: Current every day smoker Tobacco type: e-cigarettes/vaping Second hand tobacco smoke exposure: Yes Substance use: never Do You Feel Safe in your Home?: Yes Lack of Transportation: No Lack of Food: Never True Current Housing: I Have Housing Concerned About Future Housing: No Difficulty Paying Gas/Electric Bills: No Difficulty Paying for Meds: No Currently Unemployed: No Education: Master's Degree or Higher Difficulty w/ Childcare or Family Care: No Spiritual care concerns: No Meds Home Medications and Allergies Home Medications ?Medication ?Instructions ?Recorded ?Confirmed ?Type vit no.95-ferrous 1 tablet PO DAILY 08/30/24 09/07/24 History fumarate 28 mg-folic acid 800 mcg tablet () hydrocodone 5 mg-acetaminophen 325 1 tablet PO Q3H PRN Breakthrough 09/09/24 Rx mg tablet Pain Rated 4-6 15 days #25 tabs labetalol 100 mg tablet 200 mg (2 x 100 mg) PO Q12H #60 09/09/24 Rx tabs Allergies Allergy/AdvReac Type Severity Reaction Status Date / Time No Known Allergies Allergy Verified 08/30/24 13:48 Vital Signs Vital Signs - 24 hr 09/09/24 23:52 09/09/24 23:53 09/09/24 23:55 Temperature Pulse Rate 102 H 100 Blood Pressure 159/85 H 167/96 H Pulse Oximetry 99 Oxygen Delivery 09/09/24 23:57 09/10/24 00:00 09/10/24 00:02 Temperature Pulse Rate 93 Blood Pressure 157/83 H Pulse Oximetry 99 98 Oxygen Delivery 09/10/24 00:07 09/10/24 00:12 09/10/24 00:16 Temperature Pulse Rate 88 Blood Pressure 146/75 H Pulse Oximetry 99 98 Oxygen Delivery 09/10/24 00:17 09/10/24 00:18 09/10/24 00:30 Temperature Pulse Rate 106 H Blood Pressure 163/89 H Pulse Oximetry 98 93 Oxygen Delivery 09/10/24 00:46 09/10/24 01:00 09/10/24 01:57 Temperature 98 F Pulse Rate 98 98 Blood Pressure 137/84 149/101 H Pulse Oximetry Oxygen Delivery 09/10/24 02:00 09/10/24 02:06 09/10/24 03:01 Temperature Pulse Rate 88 90 Blood Pressure 143/71 H 155/87 H Pulse Oximetry Oxygen Delivery Room Air 09/10/24 04:01 09/10/24 05:09 09/10/24 05:15 Temperature 97.8 F Pulse Rate 89 96 Blood Pressure 148/83 H 163/106 H Pulse Oximetry Oxygen Delivery 09/10/24 05:16 09/10/24 05:44 09/10/24 06:01 Temperature Pulse Rate 85 80 84 Blood Pressure 156/82 H 153/86 H 165/89 H Pulse Oximetry Oxygen Delivery 09/10/24 08:00 09/10/24 08:12 Temperature Pulse Rate 80 Blood Pressure 162/108 H Pulse Oximetry Oxygen Delivery Exam Const: General: cooperative, healthy appearing, comfortable and no acute distress Orientation/consciousness: oriented to person, oriented to place and oriented to time HENMT: Head: normal to inspection Ears: external ears normal Face/Nose/Sinus: Normal external nose present and normal facial exam Face and sinus: normal facial exam Eyes: General: appearance normal, both eyes and all related structures Neck: Neck: normal visual inspection, trachea midline and supple Resp: Auscultation: clear to auscultation bilaterally, no crackles, no rales, no rhonchi and no wheezes Cardio: Rate: regular rate Rhythm: regular rhythm Heart sounds: no click, no murmurs and no rubs GI: GI Palp: No abdominal tenderness, No Soft to palpation, No Tenderness to palpation present (GI) and No Palpable mass present Auscultation: normal bowel sounds Skin: General skin exam: normal color and no rashes or lesions noted Neuro: General: oriented to person, oriented to place and oriented to time Extrem: General: normal to inspection, no joint enlargement, no clubbing, cyanosis or edema, no pedal edema and no calf tenderness Psych: Appearance: grossly normal Mental Status: mental status grossly normal Speech and movement: Normal speech and movement present H&P: Results Labs Labs: Short CBC 09/10/24 Range/Units 00:12 WBC 10.9 H (4.5-10.0) K/mm3 Hgb 10.2 L (12.0-15.0) g/dL Hct 32.0 L (37.0-47.0) % Plt Count 196 (150-375) k/mm3 BMP 09/10/24 00:12 Sodium 137 Potassium 3.6 Chloride 106 Carbon Dioxide 23 BUN 7 Creatinine 0.62 L Glucose 123 H Calcium 8.9 Liver Function 09/10/24 Range/Units 00:12 Total Bilirubin 0.3 (0.2-1.3) mg/dL AST 36 (14-36) U/L ALT 28 (6-35) U/L Alkaline Phosphatase 152 H (38-126) U/L Albumin 3.1 L (3.5-5.1) g/dL Urine 09/10/24 Range/Units 00:12 Urine Color Yellow (Yellow) Urine Appearance Clear (Clear) Urine pH 6.0 (5.0-9.0) Ur Specific [place] 1.014 (1.001-1.035) Urine Protein Negative (Negative) mg/dL Urine Glucose (UA) Negative (Negative) mg/dL Assessment and Plan Assessment and plan (1) hypertension: Code(s): O16.5 - Unspecified maternal hypertension, complicating the puerperium Status: Acute Plan this patient is a 39-year-old female who presents for blood pressure concerns. She was measuring blood pressures at home that were in the severe range. She denied any headache, blurry vision, epigastric pain. She denies any worsening of her swelling. She does have concerns about her surgical incision from the delivery. There is a warm and red area the skin above the incision site. We are working on controlling her blood pressures. Changing her blood pressure medication. Increasing her labetalol in adding nifedipine. To start antibiotics to try to prevent a abscess of the incision site. We will observe patient and obtain labs for preeclampsia.
[2024-09-10] MEDS: NIFEdipine 30 MG TAB.ER.24 60 MG PO (08:40)
[2024-09-10] MEDS: CEPHALEXIN 500 MG CAPSULE PO (08:40)
[2024-09-10 09:15] LABS: Basophils Absolute Auto 0.1 K/mm3 (0.0-0.1); Basophils Percent Auto 0.6 % (0.2-1.2); Eosinophils Absolute Auto 0.2 K/mm3 (0-0.3); Hematocrit 33.3 % (37.0-47.0); Hemoglobin 10.6 g/dL (12.0-15.0); Immature Granulocyte Absolute 0.26 K/mm3 (0.00-0.031); Immature Granulocyte Percent A 2.5 % (0-0.5); Lymphocytes Absolute Auto 1.63 K/mm3 (0.9-3.2); Lymphocytes Percent Auto 15.6 % (18.3-44.2); Mean Corpuscular HGB Conc 31.8 g/dl (32-36); Mean Corpuscular Hemoglobin 29.5 pg (26-34); Mean Corpuscular Volume 92.8 fl (80-100); Mean Platelet Volume 9.8 fl (7.4-10.4); Monocytes Percent Auto 9.5 % (2.6-8.5); Neutrophils Absolute Auto 7.3 K/mm3 (1.3-6.7); Neutrophils Percent Auto 69.8 % (45.5-73.1); Platelet Count Result 208 k/mm3 (150-375); Red Blood Count 3.59 M/mm3 (4.2-5.4); Red Cell Distribution Width 16.3 % (11.5-14.5); White Blood Count 10.4 K/mm3 (4.5-10.0)
[2024-09-10 09:25] LABS: Alanine Aminotransferase 31 U/L (6-35); Albumin Level 3.5 g/dL (3.5-5.1); Alkaline Phosphatase 165 U/L (38-126); Anion Gap 9 mmol/L (4-12); Aspartate Amino Transferase 35 U/L (14-36); Bilirubin,Total 0.4 mg/dL (0.2-1.3); Blood Urea Nitrogen 6 mg/dL (7-17); Calcium 9.3 mg/dL (8.4-10.2); Carbon Dioxide 21 mmol/L (22-30); Chloride 108 mmol/L (98-107); Estimated CRCL calculation 132 ml/min; Estimated Glomerular Filt Rate > 60; Glucose 87 mg/dL (65-110); Potassium 4.2 mmol/L (3.4-5.0); Sodium 138 mmol/L (137-145); Uric Acid 5.4 mg/dL (2.5-7.5)
== END 2024-09-10 11:30 | disposition home or self-care (01) | DRG 776 ==
PROVIDERS: Admitting Provider Obstetrics & Gynecology; Visit Provider Obstetrics & Gynecology
DX: O16.5 Unspecified maternal hypertension, complicating the puerperium (principal)
CPT/HCPCS: 36415; 80053; 81003; 82570; 84156; 84550; 85025; A9270; G0378; G0379